=== PATIENT | female | born 1985 | race Caucasian/White ===

== ENCOUNTER 2019-11-19 11:26 | Outpatient (CLI) | payer OTHER, SELFPAY ==
[2019-11-19 11:57] LABS: Hematocrit 32.7 % (37.0-47.0); Hemoglobin 11.2 g/dL (12.0-15.0); Mean Corpuscular HGB Conc 34.3 g/dl (32-36); Mean Corpuscular Hemoglobin 31.6 pg (26-34); Mean Corpuscular Volume 92.4 fl (80-100); Mean Platelet Volume 11.1 fl (7.4-10.4); Platelet Count Result 234 k/mm3 (150-375); Red Blood Count 3.54 M/mm3 (4.2-5.4); Red Cell Distribution Width 13.3 % (11.5-14.5); White Blood Count 10.8 K/mm3 (4.5-10.0)
[2019-11-20 11:41] LABS: Rapid Plasma Reagin Non-Reactive (NonReactive)
== END 2019-11-19 11:27 | disposition home or self-care (01) ==
LOC: ANHLAB 11:28
PROVIDERS: Visit Provider Obstetrics & Gynecology
DX: Z01.818 Encounter for other preprocedural examination (principal)
CPT/HCPCS: 36415; 85027; 86592; 86850; 86900; 86901

== ENCOUNTER 2019-11-20 05:30 | Inpatient (IN) | payer OTHER, SELFPAY ==
[2019-11-20] VITALS (74 sets, daily range): BP systolic 83–143; BP diastolic 43–112; PULSE 43–82; RESP 16–20; TEMP 36.2–37; O2SAT 95–100; BMI 35.1
[2019-11-20] MEDS: LACTATED RINGERS 1,000 ML 125 ML IV CONT ×2 (06:01→07:02)
--- NOTE | 2019-11-20 06:16 | P.PNAN_ITS ---
Anes - Initial Pre Proc Eval Procedure: Operation Date: 11/20/19 07:30 Proposed Procedures p Repeat Section with Bilateral Tubal Ligation - Shabana Shrestha MD Date/Time: 11/20/19 06:16 Surgeon: Shabana Shrestha MD Pre Op Diagnosis: Section Patient Data Age: 34 Gender: F Height: Weight: Last Vital Signs Pulse 78 11/20/19 06:16 BP 125/81 11/20/19 06:16 Allergies Allergy/AdvReac Type Severity Reaction Status Date / Time morphine Allergy Mild hives, Verified 11/20/19 06:01 itching, redness SOAPCLEAN AdvReac Unknown DYE IN SOAP Uncoded 11/20/19 06:01 Home Medications Medication Instructions Recorded Confirmed Type PNV cmb#95-ferrous fumarate-FA 1 tablet PO DAILY 10/30/19 10/30/19 History [] Patient hx anesthesia problems: none Family hx anesthesia problems: none PMFSH Past Medical History Medical History Obesity Smoker Surgical History Surgical History (Updated 11/20/19 @ 06:17 by Zurdo Culver MD) History of section Family History Family History Grandparent Hypertension Diabetes mellitus Social History Social History Substance use: current Gender identity (if verbalized by the patient): Female Spiritual care concerns: No Anes - Eval Final PreProcedure Day of Procedure 11/20/19 06:16 Patient weight: obese Heart: regular rate and rhythm Lungs: clear to auscultation Airway: Mallampati scale class II Neurological: alert and oriented Last oral intake: >/= 8 hours ASA classification: III Emergent: no Anesthetic plan: proceed Anesthesia type and monitoring: regional (morphine allergy - no intrathecal morphine will be given) spinal and standard monitoring Informed Consent: The patient's anesthetic plan and its attendant risks and b enefits were discussed with the patient/family/POA. Questions were solicited and answers provided to the satisfaction of the patient/family/POA.
--- NOTE | 2019-11-20 06:25 | LDADM ---
This patient, Doreen Sun, was admitted to Labor/Delivery/Recovery 120 on 11/20/19 at 05:30. Plans for scheduled section, pain management and were discussed with patient. Patient/family oriented to hospital policies and general routines including ID bracelet, bed and alarms, visiting hours, pain management, procedures, bathroom and other care routines, personal items, smoking policy, room service/diet and guest tray routines, infant security routines, and visiting hours. Patient/Family are encouraged to report perceived risks to care and to ask questions if they do not understand what they are told or what they should do. See OBIX for further documentation.
--- NOTE | 2019-11-20 07:19 | PM.IMHP ---
H&P: HPI History of Present Illness Date/Time: 11/20/19 07:19This patient is a 34-year-old multiparous female with a previous delivery in on wanted fertility. We have agreed to perform repeat delivery and bilateral tubal ligation. She understands the procedure. She denies any loss of fluid, vaginal bleeding, contractions. She denies any headache, blurry vision, epigastric pain. She does have chest pain or shortness of breath. She denies any nausea, vomiting, fever, chills. Chief complaint: Section Narrative: Doreen Sun is a 34 year old female Review of Systems Constitutional: Constitutional: Reports no additional constitutional complaints, Denies fatigue, Denies headache(s), Denies lethargy and Denies weakness Eyes: Eyes: Reports no additional eye complaints, Denies blurry vision and Denies photophobia ENT: Reports as per HPI, Denies headache(s) and Denies neck pain Cardiovascular: Cardiovascular: Denies chest pain, Denies diaphoresis, Denies leg edema, Denies palpitations and Denies dyspnea Respiratory: Respiratory: Denies hemoptysis, Denies dyspnea and Denies wheezing Gastrointestinal: Gastrointestinal: Denies abdominal pain, Denies melena, Denies bloating, Denies hematochezia, Denies nausea and Denies vomiting Genitourinary: Genitourinary: Reports no additional female genitourinary complaints Musculoskeletal: Musculoskeletal: Denies joint swelling, Denies neck pain, Denies numbness and Denies stiffness Neurologic: Denies Abnormal speech present, Denies confusion, Denies headache(s), Denies numbness and Denies weakness Psychiatric: Psychiatric: Denies anxiety, Denies confusion, Denies depression, Denies homicidal ideation and Denies suicidal ideation Endocrine: Endocrine: Denies fatigue and Denies palpitations Allergic/Immunologic: Allergic/Immunologic: Denies wheezing PMFSH Past Medical History Medical History Obesity Smoker Surgical History Surgical History (Updated 11/20/19 @ 07:21 by Shabana Shrestha MD) History of section Family History Family History Grandparent Hypertension Diabetes mellitus Social History Social History Smoking packs per day: 1 Smoking cigarettes per day: 20.0 Years smoked: 15 Smoking pack-years: 15.00 Smoking status: Heavy tobacco smoker Tobacco type: cigarettes Substance use: current Gender identity (if verbalized by the patient): Female Spiritual care concerns: No Meds Home Medications and Allergies Home Medications Medication Instructions Recorded Confirmed Type PNV cmb#95-ferrous fumarate-FA 1 tablet PO DAILY 10/30/19 10/30/19 History [] Allergies Allergy/AdvReac Type Severity Reaction Status Date / Time morphine Allergy Mild hives, Verified 11/20/19 06:01 itching, redness SOAPCLEAN AdvReac Unknown DYE IN SOAP Uncoded 11/20/19 06:01 Vital Signs Vital Signs - 24 hr 11/20/19 05:53 11/20/19 06:01 11/20/19 06:16 Temperature Pulse Rate 82 76 78 Respiratory Rate Blood Pressure 112/85 114/74 125/81 11/20/19 06:35 Temperature 98.6 F Pulse Rate Respiratory Rate 18 Blood Pressure Exam Const: General: healthy appearing, comfortable and no acute distress; No confusion Orientation/consciousness: No confusion Eyes: Direct Ophthalmoscopy: No photophobia Resp: Auscultation: clear to auscultation bilaterally, no rales, no rhonchi and no wheezes Cardio: Rate: regular rate Heart sounds: no click, no murmurs and no rubs GI: Inspection: non-distended GI Palp: No abdominal tenderness Auscultation: normal bowel sounds Neuro: General: No confusion Speech: No Abnormal speech present Extrem: General: normal to inspection, no pedal edema and no calf tenderness Assessment and Plan Assessment and plan (1) Term : Code(s): Z34.90
[2019-11-20] MEDS: LACTATED RINGERS 250 ML 999 ML IVPB (08:30)
[2019-11-20] MEDS: KETOROLAC 30 MG/ML VIAL (*BKC) IV PUSH ×2 (08:31→15:47)
--- NOTE | 2019-11-20 08:37 | P.OP_ITS ---
Procedure Note - Detailed Date of procedure: 11/20/19 Pre-op diagnosis: Section Unwanted fertility Post-op diagnosis: same Procedure performed: Repeat low-transverse delivery, tubal ligation Description of procedure: The patient was taken the operating room. She was prepped and draped in the dorsal supine position with leftward tilt after induction of spinal anesthetic. When anesthesia was found to be adequate a low- transverse skin incision was made and carried down to the level the fascia with the knife. The fascial incision was made at the midline with a scalpel. The fascial incision was extended laterally with Hamm scissors. The fascia was tented upward superior and inferior with Izabella clamps. The rectus muscles were dissected off bluntly. The rectus muscles at the midline. The preperitoneal fat was dissected bluntly at the superior aspect of the separate the rectus muscles. The peritoneal cavity was entered bluntly in the same area. The peritoneal incision was extended superior and inferior with good position of bladder. Bladder blade was inserted. A low-transverse incision was made on the uterus with the scalpel. It was carried down the level of the amniotic cavity with a knife. The amniotic cavity bluntly. The uterine incision was made laterally with blunt traction. The was delivered. The cord was clamped and cut. The infant was handed off to waiting pediatric staff. Cord bloods were obtained. The placenta was removed manually. The uterus was exteriorized. Uterus cleared of all clots and debris. Uterus closed in 0 Micky ryl in a running locked fashion. An imbricating layer of 0 Vicryl was also placed on the to bolster the closure. The left Fallopian tube was grasped in the ampullary region with a [place]. It was raised away from the accompanying vein. A window was created in the broad ligament in this area of the tube. 0 Vicryl was used to ligate the proximal distal ends of the skeletonize region of the tube. The segment of the tube was resected with scissors. The cut surfaces were cauterized. On the contralateral side a fimbriectomy was performed. It was bleeding distally. A clamp was place over the tube and vessels at the distal 1/3 of the tube. It was transected and suture ligated removing a portion of the tube and the fimbria. The uterus was returned to the abdomen. The gutters were cleared of all clots and debris. The fascia was closed 0 Vicryl in a running fashion. Subcutaneous tissue was irrigated and bleeding areas were cauterized. The skin was closed with subcuticular absorbable sandra. The incision was covered with derma gann. The patient tolerated the procedure well. She was taken recovery room stable condition. Sponge, lap, needle counts were correct x2. Anesthesia: spinal Surgeon: Shabana Shrestha MD Estimated blood loss (mL): 350 Drains: No Packing: No Pathology: none sent Complications: No immediate complications Condition: stable Disposition: floor Findings: Normal maternal anatomy. Average size with normal Apgars.
[2019-11-20] MEDS: OXYTOCIN 30 UNITS/NS 500 ML 30 UNITS/500 ML BAG 125 UNITS IV CONT (09:10)
--- NOTE | 2019-11-20 10:54 | SUR.PHASEI ---
Dr. Shrestha notified regarding pt's decreased urine output of 50 mL in recovery and pt's sinus bradycardia. Received orders from Dr. Shrestha to continue with current POC and to start Hydromorphone [employer] pump upon transfer to .
--- NOTE | 2019-11-20 11:05 | PC.NURSE ---
PT arrived on unit via stretcher accompanied by significant other and and taken to room 282. PT transferred to bed via maxi air without difficulty. PT oriented to room 282 and surrounding area. PT introductions made and plan of care discussed per post op c section, pain management, breast feeding, daily care activities. Welcome packet discussed and pt verbalized understanding of such care.
[2019-11-20] MEDS: DEXTROSE 5%/0.45% SOD CHL 1,000 ML 125 ML IV CONT (13:30)
[2019-11-20] MEDS: DOCUSATE SODIUM 100 MG CAPSULE PO (15:46)
[2019-11-20] MEDS: NICOTINE (*PBKC) 21 MG PATCH 1 PATCH TRANSDERM (15:46)
[2019-11-20] MEDS: SIMETHICONE 80 MG TAB.CHEW PO (15:46)
[2019-11-20] MEDS: FUROSEMIDE INJ 40 MG/4 ML VIAL 20 MG IV PUSH (18:24)
[2019-11-20] MEDS: LACTATED RINGERS 500 ML 999 ML IV CONT (18:30)
[2019-11-20 20:11] LABS: Alanine Aminotransferase 12 U/L (4-35); Albumin Level 2.9 g/dL (3.5-5.1); Alkaline Phosphatase 158 U/L (38-126); Anion Gap 6 mmol/L (8-16); Aspartate Amino Transferase 23 U/L (14-36); Bilirubin,Total 0.4 mg/dL (0.2-1.3); Blood Urea Nitrogen 7 mg/dL (7-17); Carbon Dioxide 21 mmol/L (22-30); Chloride 106 mmol/L (98-107); Estimated CRCL calculation 122 ml/min; Estimated Glomerular Filt Rate > 60; Glucose 118 mg/dL (65-105); Potassium 3.8 mmol/L (3.4-5.0); Sodium 133 mmol/L (137-145)
[2019-11-20] MEDS: IBUPROFEN 600 MG TABLET PO (21:44)
[2019-11-21 03:25] VITALS: BP 109/64; PULSE 52; RESP 16; TEMP 36.7
[2019-11-21] MEDS: IBUPROFEN 600 MG TABLET PO ×3 (03:39→19:01)
[2019-11-21 05:14] LABS: Basophils Percent Auto 0.1 % (0.2-1.2); Eosinophils Percent Auto 0.4 % (0-4.4); Hematocrit 27.5 % (37.0-47.0); Hemoglobin 9.1 g/dL (12.0-15.0); Immature Granulocyte Absolute 0.04 K/mm3 (0.00-0.031); Immature Granulocyte Percent A 0.4 % (0-0.5); Lymphocytes Absolute Auto 1.04 K/mm3 (0.9-3.2); Lymphocytes Percent Auto 11.3 % (18.3-44.2); Mean Corpuscular HGB Conc 33.1 g/dl (32-36); Mean Corpuscular Hemoglobin 30.6 pg (26-34); Mean Corpuscular Volume 92.6 fl (80-100); Mean Platelet Volume 11.9 fl (7.4-10.4); Monocytes Absolute Auto 0.5 K/mm3 (0.1-0.6); Monocytes Percent Auto 5.7 % (2.6-8.5); Neutrophils Absolute Auto 7.6 K/mm3 (1.3-6.7); Neutrophils Percent Auto 82.1 % (45.5-73.1); Platelet Count Result 194 k/mm3 (150-375); Red Blood Count 2.97 M/mm3 (4.2-5.4); Red Cell Distribution Width 13.2 % (11.5-14.5); White Blood Count 9.2 K/mm3 (4.5-10.0)
[2019-11-21 07:30] VITALS: BP 95/53; PULSE 72; RESP 18; TEMP 36.7; O2SAT 97
[2019-11-21] MEDS: DOCUSATE SODIUM 100 MG CAPSULE PO ×2 (07:33→15:48)
[2019-11-21] MEDS: POLYSACCHARIDE IRON COMPLEX 150 MG CAPSULE PO ×2 (07:33→15:46)
--- NOTE | 2019-11-21 08:36 | WPDANLDNPN2 ---
Anes-Prog Note L&D-Neuraxial Date/Time: 11/21/19 08:36 Neuraxial medications: intrathecal PF morphine Opiod-related complaints: none Patient feedback: Patient satisfied with post-operative pain management.
--- NOTE | 2019-11-21 08:36 | WPDANLDPN2 ---
Anes-Prog Note L&D Date/Time: 11/21/19 08:36 Comfortable throughout: section Neuraxial method: spinal Epidural/Spinal procedure site: clean & non-tender Neuro status: Neuro function grossly intact. Cardiovascular status: normal Respiratory status: normal Airway patency: baseline Mental status: baseline Post-Op hydration status: normal Vital Signs: Last Vital Signs Temp 36.7 C 11/21/19 03:25 Pulse 52 L 11/21/19 03:25 Resp 16 11/21/19 03:25 BP 109/64 11/21/19 03:25 Pulse Ox 100 11/20/19 19:00 I/O: Intake & Output 11/20/19 11/21/19 11/21/19 23:59 07:59 15:59 Intake Total 1650 800 Output Total 1550 400 Balance 100 400 Patient feedback: Patient satisfied with anesthetic care.
--- NOTE | 2019-11-21 11:13 | P.PNOB_ITS ---
OB - PN: Subj Subjective Date/time seen: 11/21/19 11:13 OB - PN: Obj Data Labs CBC & Chem 7: 11/21/19 03:27 11/20/19 19:47 Labs: Laboratory Results - last 24 hr 11/20/19 11/21/19 19:47 03:27 WBC 9.2 RBC 2.97 L Hgb 9.1 L Hct 27.5 L MCV 92.6 MCH 30.6 MCHC 33.1 RDW 13.2 Plt Count 194 MPV 11.9 H Immature Gran % (Auto) 0.4 Neut % (Auto) 82.1 H Lymph % (Auto) 11.3 L Amelia % (Auto) 5.7 Eos % (Auto) 0.4 Baso % (Auto) 0.1 L Lymph # (Auto) 1.04 Amelia # (Auto) 0.5 Eos # (Auto) 0.0 Baso # (Auto) 0.0 Abs Immat Gran (auto) 0.04 H Absolute Neuts (auto) 7.6 H Absolute Nucleated RBC 0.0 Nucleated RBC % 0.0 Sodium 133 L Potassium 3.8 Chloride 106 Carbon Dioxide 21 L Anion Gap 6 L BUN 7 Creatinine 0.60 L Estim Creat Clear Calc 122 Estimated GFR > 60 Glucose 118 H Calcium 8.0 L Total Bilirubin 0.4 AST 23 ALT 12 Alkaline Phosphatase 158 H Total Protein 6.0 L Albumin 2.9 L OB - PN A/P Plan day: 1 Plan: routine care Time Spent With Patient Time: Total time spent is greater than 50% in coordination of care (as documented) at patient's floor/unit and/or counseling patient: Time with patient: less than 15 minutes Review of Systems Review of Systems: All systems reviewed & are unremarkable except as noted in HPI and below Exam Narrative: Exam Narrative: Fundus firm and vaginal flow controlled. Const: General: cooperative, healthy appearing and comfortable Orienta tion/consciousness: oriented to person, oriented to place, oriented to time and patient oriented x3 Limitations: no limitations HENMT: Head: normal to inspection Ears: hearing grossly normal bilaterally General nose exam: Normal external nose present Face and sinus: normal facial exam Mouth: Yes Normal oral and palatal mucosa present Teeth and gingiva: dentition normal Throat: posterior oropharynx normal Eyes: General: appearance normal, both eyes and all related structures Neck: Neck: normal visual inspection Thyroid: thyroid normal Chest: Chest palpation & inspection: normal inspection of the chest Resp: Effort & Inspection: normal respiratory effort Auscultation: clear to auscultation bilaterally Cardio: Rate: regular rate Rhythm: regular rhythm GI: Inspection: normal to inspection Auscultation: normal bowel sounds : General: Yes bimanual renal exam normal bilaterally Skin: General skin exam: normal color and no rashes or lesions noted Neuro: General: oriented to person, oriented to place, oriented to time and patient oriented x3 Extrem: General: normal to inspection Psych: Appearance: grossly normal Mental Status: mental status grossly normal Attitude: cooperative Judgement: Good judgement present (Psych)
[2019-11-21] MEDS: TETANUS,DIPHTHERIA,AC PERTUSSIS ADULT (0.5 ML) BOOSTRIX IM (11:43)
[2019-11-21 18:48] VITALS: BP 115/71; PULSE 69; RESP 16; TEMP 36.8; O2SAT 97
[2019-11-21] MEDS: NICOTINE (*PBKC) 14 MG PATCH 1 PATCH TRANSDERM (19:36)
--- NOTE | 2019-11-21 20:36 | PC.NURSE ---
11/21/2019 at 2000 Patient viewed the discharge video Mother & Baby Care, The First Two Weeks . Patient was given the opportunity and encouraged to ask questions. Patient verbalized understanding of information shared and has been given the mother/baby guide for home reference.
[2019-11-21] MEDS: SIMETHICONE 80 MG TAB.CHEW PO (23:30)
[2019-11-22] MEDS: IBUPROFEN 600 MG TABLET PO ×2 (04:03→11:54)
[2019-11-22] MEDS: SIMETHICONE 80 MG TAB.CHEW PO ×2 (04:03→11:56)
[2019-11-22 08:00] VITALS: BP 130/89; PULSE 91; RESP 18; TEMP 36.7; O2SAT 97
--- NOTE | 2019-11-22 10:45 | PM.OBPNVD ---
OB - PN: Subj Subjective Date/time seen: 11/22/19 10:45 Patient comments: no complaints and pain well controlled baby status: doing well OB - PN: Obj Data Labs CBC & Chem 7: 11/21/19 03:27 11/20/19 19:47 OB - PN A/P Plan day: 2 Plan: routine care and discharge home Comments: RTC 1 week. Time Spent With Patient Time: Total time spent is greater than 50% in coordination of care (as documented) at patient's floor/unit and/or counseling patient: Review of Systems Review of Systems: All systems reviewed & are unremarkable except as noted in HPI and below Exam Narrative: Exam Narrative: Fundus firm. Flow controlled. Incision looks great and is open to air. No redness, warmth, or edema of lower ext. Neg homans sign Const: General: comfortable Chest: Breast/axilla inspection: normal inspection of the breasts Resp: Effort & Inspection: normal respiratory effort Auscultation: clear to auscultation bilaterally Cardio: Rate: regular rate GI: Auscultation: normal bowel sounds Psych: Appearance: grossly normal Affect: normal affect Attitude: cooperative Judgement: Good judgement present (Psych)
[2019-11-22] MEDS: DOCUSATE SODIUM 100 MG CAPSULE PO (11:53)
[2019-11-22] MEDS: POLYSACCHARIDE IRON COMPLEX 150 MG CAPSULE PO (11:53)
[2019-11-22] MEDS: MULTIVIT/MIN/PREN/FOL AC/IRON TABLET 1 TAB PO (11:53)
--- NOTE | 2019-11-22 15:58 | PC.NURSE ---
1338 Mother slept all monring until about 1130; awakened and asked for pain med. Nurse had been in room 2 times with pain meds, and mother was sound asleep each time. Pain meds given; then discharge papers reviewed with her for herself and her baby, and signed. Mother discharged home at this time in apparent stable condition.
[2019-11-24 10:51] VITALS: BP 122/83; PULSE 71; RESP 20; TEMP 36.9; O2SAT 98
--- NOTE | 2019-12-20 20:26 | PM.OBDSVD ---
DS: Admitting Diagnosis Admitting Diagnosis Admitting Diagnosis: Section DS: Discharge Diagnosis Discharge Diagnosis (1) Previous delivery, delivered: Code(s): O34.219 - Maternal care for unspecified type scar from previous delivery Status: Acute OB - DS: Summary OB Procedures : None OB Procedures Intrapartum: and Tubal ligation OB Procedures: : None Peripartum Data Infant Delivery Method: Section Procedures: Procedures Operation Date: 11/20/19 07:30 Actual Procedures Side Surgeon p Section Shabana Shrestha MD Time Spent with Patient Time attestation: Total time spent providing and/or coordinating discharge services: DS: Data Data Completed and Pending Completed studies during hospitalization: Pending at discharge 11/20/19 09:16 Surgical [PTH] Routine Discharge Plan Discharge Attending physician on discharge: Shabana Shrestha Consulting providers: Zurdo Culver ; Erma Stevens Discharging Clinician: Erma Stevens Patient Disposition: Home, Self-Care Activity: pelvic rest Diet: as tolerated Wound Care Instructions: follow printed instructions Discharge Instructions: Education: Mom and Baby Guide Given to: Mother Follow-Up: Call your delivering provider's office for an appointment to be seen in: as directed by physician Mom and baby should come to the [facility] for the follow-up appointment. Appointment Date/Time: Sunday November 24, 2019 at 11:00 am What to expect at your follow-up visit: Blood Pressure Check Physical Assessment Call [phone] if you are unable to keep your appointment time. BREAST CARE: * Wear a snug supportive bra. * For engorgement discomfort: Breast Feeding: * Apply warm moist washcloths * Express milk as needed to relieve engorgement * Wear loose clothing Bottle Feeding: * May apply ice packs * For sore nipples: * Identify correct latch-on * Apply warm moist washcloths before and after nursing * Air dry nipples after nursing * May apply Lansinoh cream to nipples ABDOMINAL INCISION: (if applicable) * Allow incision to air dry * Do NOT use lotions for powders on your incision * When showering, allow soap and water to run over the incision, but do not wash incision EPISIOTOMY/PERINEAL CARE: * Until bleeding stops, use your antonino bottle after urinating * Change your pad frequently throughout the day * No tub baths until seen by your physician - You may shower ACTIVITY: * Rest as much as possible. * Do not exercise or lift anything heavier than your baby (such as laundry or other children.) * Avoid stairs or driving as much as possible. * Do not put anything into the vagina. No douching, tampons, or sexual activity until seen by physician. NOTIFY PHYSICIAN IF YOU HAVE ANY QUESTIONS OR IF ANY OF THE FOLLOWING SYMPTOMS OCCUR: * If your incision becomes red, swollen, or more painful than what you have experienced in the hospital. * If your vaginal bleeding becomes foul smelling. * If your vaginal bleeding becomes more heavy than a period or if your bleeding changes from pink to bright red. However, you may pass an occasional walnut-sized clot once or twice for the first week . * If you experience a sharp, shooting pain in you calves. * If you discover a hard, reddened area on your breast or if you experience flu-like symptoms. *Temperature of 100.4 or higher DIET: * Eat regular, well-balanced meals. * Drink plenty of fluids daily. If , drink to thirst. Morphine allergy. However, pt has tolerated norco well with no side effects. Pt will monitor for s/s of reaction. Patient Instructions: How to Stop Smoking (DC) Stand Alone Forms: General Discharge Information Follow-up/Referrals: Shabana Shrestha MD
== END 2019-11-22 13:38 | disposition home or self-care (01) | DRG 540 ==
LOC: ANHLDR 05:34 → ANHOB2 11:08
PROVIDERS: Admitting Provider Obstetrics & Gynecology; Visit Provider Obstetrics & Gynecology
PROC: 10D00Z1 Extraction of Products of Conception, Low, Open Approach (ICD-10-PCS; CPT 59514; principal; 2019-11-20 07:30)
DX: O34.211 Maternal care for low transverse scar from previous cesarean delivery (principal); Z30.2 Encounter for sterilization; O99.214 Obesity complicating childbirth; E66.9 Obesity, unspecified; O99.334 Smoking (tobacco) complicating childbirth; F17.210 Nicotine dependence, cigarettes, uncomplicated; Z3A.39 39 weeks gestation of pregnancy; Z37.0 Single live birth
CPT/HCPCS: 36415; 80053; 85025; 88302; 90715; A9270; J0131; J1170; J1885; J1940; J2370; J2405; J2590; J3010; J7120

== ENCOUNTER 2024-06-29 14:30 | Emergency (ER) | payer MEDICAID, SELFPAY ==
--- NOTE | ~2024-06-29 | XR_ITS ---
EXAMINATION: XR chest 2V Exam Date/Time: 06/29/2024 15:23 CDT HISTORY: cough Comparison: None. RESULT: Lines, tubes, and devices: None. Lungs and pleura: Clear. Cardiomediastinal silhouette: Unremarkable. Other: No acute osseous or upper abdominal finding. IMPRESSION: No acute cardiopulmonary process. Reviewed, dictated and finalized at location K.
[2024-06-29 14:38] VITALS: BP 152/94; PULSE 91; RESP 18; TEMP 36.7; O2SAT 100
--- NOTE | 2024-06-29 14:39 | ED.GENADULT ---
HPI - General Adult General Chief complaint: Unspecified <Meena Ashraf APRN - Last Filed: 06/29/24 14:43> Stated complaint: Sore throat, hoarse x 3-4 weeks <Meena Ashraf APRN - Last Filed: 06/29/24 14:43> Time Seen by Provider: 06/29/24 14:35 <Meena Ashraf APRN - Last Filed: 06/29/24 14:43> Focused HPI: Patient is a 38-year-old female who presents to the ER with a 3-4 week history of cough, congestion, scratchy throat. She reports she is on she was experiencing seasonal allergies, and she discovered mold. Patient reports she has continued to experience symptoms even though she has cleaned up the area. She denies any medical history relevant to this ER visit. Patient denies any chest pain, recent fevers, back pain. GENERAL: Well-appearing, well-nourished, and in no acute distress. HEAD: Normocephalic, atraumatic. CHEST: + wheezing & rales to auscultation. ?No respiratory distress. HEART: Regular rate and rhythm.? NEURO: ?Alert and oriented x3. Patient screened in triage and initial orders placed.? ?Additional care and disposition to be based upon?diagnostic testing and treatment. <Meena Ashraf APRN - Last Filed: 06/29/24 14:43> Source: patient <Gm Gonzalez PA-C - Last Filed: 06/30/24 01:38> Mode of arrival: ambulatory <Gm Gonzalez PA-C - Last Filed: 06/30/24 01:38> Limitations: no limitations <Gm Gonzalez PA-C - Last Filed: 06/30/24 01:38> History of Present Illness HPI narrative: Agree with MSE note above <Gm Gonzalez PA-C - Last Filed: 06/30/24 01:38> Related Data Home medications: Home Medications ?Medication ?Instructions ?Recorded ?Confirmed ?Last Taken ?Type vit no.95-ferrous 1 tablet PO DAILY 10/30/19 10/30/19 Unknown History fumarate 28 mg-folic acid 800 mcg tablet () <Meena Ashraf APRN - Last Filed: 06/29/24 14:43> Allergies/adverse reactions: Allergies Allergy/AdvReac Type Severity Reaction Status Date / Time morphine Allergy Mild hives, Verified 06/29/24 14:32 itching, redness SOAPCLEAN AdvReac Unknown DYE IN SOAP Uncoded 06/29/24 14:32 <Meena Ashraf APRN - Last Filed: 06/29/24 14:43> Review of Systems Review of Systems: All systems as dictated in HPI <Gm Gonzalez PA-C - Last Filed: 06/30/24 01:38> PMFSH Past Medical History Medical History: Medical History Obesity Smoker <Meena Ashraf APRN - Last Filed: 06/29/24 14:43> Surgical History Surgical History: Surgical History (Updated 11/20/19 @ 07:21 by Mark Shrestha MD) History of section <Meena Ashraf APRN - Last Filed: 06/29/24 14:43> Family History Family History: Family History Grandparent Hypertension Diabetes mellitus <Meena Ashraf APRN - Last Filed: 06/29/24 14:43> Social History Social History: Social History Smoking packs per day: 1 Smoking cigarettes per day: 20.0 Years smoked: 15 Smoking pack-years: 15.00 Smoking status: Heavy tobacco smoker Tobacco type: cigarettes Substance use: current Gender identity (if verbalized by the patient): Female Spiritual care concerns: No <Meena Ashraf APRN - Last Filed: 06/29/24 14:43> Exam Narrative: GENERAL: Well-appearing, well-nourished, and in no acute distress. HEAD: Normocephalic, atraumatic. EYES: PERRLA and EOMI. ENT: Nares clear, no rhinorrhea or epistaxis. Mucous membranes moist. Oropharynx without tonsillar hypertrophy exudate or other lesions. NECK: Supple. No adenopathy or masses. CHEST: No respiratory distress. Clear to auscultation. No wheezes rales or rhonchi HEART: Regular rate and rhythm. No murmur heard. Normal peripheral pulses. ABDOMEN: Soft, nontender, nondistended, normal active bowel sounds. MSK: Normal range of motion. No edema. SKIN: Warm, dry, no rash. NEURO: Alert and oriented x4. No focal deficits. PSYCH: Normal mood and affect. <Gm Gonzalez PA-C - Last Filed: 06/30/24 01:38> Course Vital Signs Vital signs: Vital Signs Temperature 98.0 F 06/29/24 14:38 Pulse Rate 91 06/29/24 14:38 Respiratory Rate 18 06/29/24 14:38 Blood Pressure 152/94 H 06/29/24 14:38 Pulse Oximetry 100 06/29/24 14:38 Temperature 98.0 F 06/29/24 14:38 Pulse Rate 89 06/29/24 18:21 Respiratory Rate 16 06/29/24 18:21 Blood Pressure 145/90 H 06/29/24 18:21 Pulse Oximetry 100 06/29/24 18:21 <Meena Ashraf APRN - Last Filed: 06/29/24 14:43> Vital Signs Temperature 98.0 F 06/29/24 14:38 Pulse Rate 91 06/29/24 14:38 Respiratory Rate 18 06/29/24 14:38 Blood Pressure 152/94 H 06/29/24 14:38 Pulse Oximetry 100 06/29/24 14:38 Temperature 98.0 F 06/29/24 14:38 Pulse Rate 89 06/29/24 18:21 Respiratory Rate 16 06/29/24 18:21 Blood Pressure 145/90 H 06/29/24 18:21 Pulse Oximetry 100 06/29/24 18:21 <BEBETO Higgins Last Filed: 06/30/24 01:38> Medical Decision Making MDM Narrative Medical decision making narrative: This is a 38-year-old female who presents to the ED for chief complaint of was hoarse voice past couple of weeks. Lab work shows normal white count on CBC. CBC shows stable anemia with hemoglobin of 11.7. CMP does show elevation in AST, ALT and alk-phos to a minor degree. Chest x-ray shows no acute findings. Presentation most likely consistent with post viral laryngitis. Patient will be discharged in stable condition. Supportive measures discussed and return precautions given. Patient is understanding and agreeable with plan for discharge with PCP follow-up. <Gm Gonzalez PA-C - Last Filed: 06/30/24 01:38> Vital Signs Vital Signs: Vital Signs Temperature 98.0 F 06/29/24 14:38 Pulse Rate 91 06/29/24 14:38 Respiratory Rate 18 06/29/24 14:38 Blood Pressure 152/94 H 06/29/24 14:38 Pulse Oximetry 100 06/29/24 14:38 Temperature 98.0 F 06/29/24 14:38 Pulse Rate 89 06/29/24 18:21 Respiratory Rate 16 06/29/24 18:21 Blood Pressure 145/90 H 06/29/24 18:21 Pulse Oximetry 100 06/29/24 18:21 <Meena Ashraf, MINERAL RESOURCES INSPECTOR - Last Filed: 06/29/24 14:43> Vital Signs Temperature 98.0 F 06/29/24 14:38 Pulse Rate 91 06/29/24 14:38 Respiratory Rate 18 06/29/24 14:38 Blood Pressure 152/94 H 06/29/24 14:38 Pulse Oximetry 100 06/29/24 14:38 Temperature 98.0 F 06/29/24 14:38 Pulse Rate 89 06/29/24 18:21 Respiratory Rate 16 06/29/24 18:21 Blood Pressure 145/90 H 06/29/24 18:21 Pulse Oximetry 100 06/29/24 18:21 <Gm Gonzalez PA-C - Last Filed: 06/30/24 01:38> Lab Data Result diagrams: 06/29/24 15:01 06/29/24 15:01 <Meena Ashraf, MINERAL RESOURCES INSPECTOR - Last Filed: 06/29/24 14:43> Labs: Lab Results 06/29/24 Range/Units 15:01 WBC 6.1 (4.5-10.0) K/mm3 RBC 4.12 L (4.2-5.4) M/mm3 Hgb 11.7 L (12.0-15.0) g/dL Hct 37.5 (37.0-47.0) % MCV 91.0 (80-100) fl MCH 28.4 (26-34) pg MCHC 31.2 L (32-36) g/dl RDW 16.4 H (11.5-14.5) % Plt Count 244 (150-375) k/mm3 MPV 10.3 (7.4-10.4) fl Immature Gran % (Auto) 0.3 (0-0.5) % Neut % (Auto) 62.1 (45.5-73.1) % Lymph % (Auto) 28.8 (18.3-44.2) % [place] % (Auto) 6.2 (2.6-8.5) % Eos % (Auto) 2.1 (0-4.4) % Baso % (Auto) 0.5 (0.2-1.2) % Lymph # (Auto) 1.76 (0.9-3.2) K/mm3 [place] # (Auto) 0.4 (0.1-0.6) K/mm3 Eos # (Auto) 0.1 (0-0.3) K/mm3 Baso # (Auto) 0.0 (0.0-0.1) K/mm3 Abs Immat Gran (auto) 0.02 (0.00-0.031) K/mm3 Absolute Neuts (auto) 3.8 (1.3-6.7) K/mm3 Absolute Nucleated RBC 0.000 (0.0-0.012) K/mm3 Nucleated RBC % 0.0 (0.0-0.2) % Sodium 139 (137-145) mmol/L Potassium 4.0 (3.4-5.0) mmol/L Chloride 105 (98-107) mmol/L Carbon Dioxide 23 (22-30) mmol/L Anion Gap 11 (4-12) mmol/L BUN 4 L (7-17) mg/dL Creatinine 0.72 (0.7-1.0) mg/dL Estim Creat Clear Calc 97 ml/min Estimated GFR > 60 (59 - ) Glucose 94 (65-110) mg/dL Calcium 8.7 (8.4-10.2) mg/dL Total Bilirubin 0.3 (0.2-1.3) mg/dL AST 45 H (14-36) U/L ALT 47 H (6-35) U/L Alkaline Phosphatase 166 H (38-126) U/L Total Protein 7.0 (6.3-8.2) g/dL Albumin 4.3 (3.5-5.1) g/dL <Meena Ashraf, MINERAL RESOURCES INSPECTOR - Last Filed: 06/29/24 14:43> Lab Results 06/29/24 Range/Units 15:01 WBC 6.1 (4.5-10.0) K/mm3 RBC 4.12 L (4.2-5.4) M/mm3 Hgb 11.7 L (12.0-15.0) g/dL Hct 37.5 (37.0-47.0) % MCV 91.0 (80-100) fl MCH 28.4 (26-34) pg MCHC 31.2 L (32-36) g/dl RDW 16.4 H (11.5-14.5) % Plt Count 244 (150-375) k/mm3 MPV 10.3 (7.4-10.4) fl Immature Gran % (Auto) 0.3 (0-0.5) % Neut % (Auto) 62.1 (45.5-73.1) % Lymph % (Auto) 28.8 (18.3-44.2) % [place] % (Auto) 6.2 (2.6-8.5) % Eos % (Auto) 2.1 (0-4.4) % Baso % (Auto) 0.5 (0.2-1.2) % Lymph # (Auto) 1.76 (0.9-3.2) K/mm3 [place] # (Auto) 0.4 (0.1-0.6) K/mm3 Eos # (Auto) 0.1 (0-0.3) K/mm3 Baso # (Auto) 0.0 (0.0-0.1) K/mm3 Abs Immat Gran (auto) 0.02 (0.00-0.031) K/mm3 Absolute Neuts (auto) 3.8 (1.3-6.7) K/mm3 Absolute Nucleated RBC 0.000 (0.0-0.012) K/mm3 Nucleated RBC % 0.0 (0.0-0.2) % Sodium 139 (137-145) mmol/L Potassium 4.0 (3.4-5.0) mmol/L Chloride 105 (98-107) mmol/L Carbon Dioxide 23 (22-30) mmol/L Anion Gap 11 (4-12) mmol/L BUN 4 L (7-17) mg/dL Creatinine 0.72 (0.7-1.0) mg/dL Estim Creat Clear Calc 97 ml/min Estimated GFR > 60 (59 - ) Glucose 94 (65-110) mg/dL Calcium 8.7 (8.4-10.2) mg/dL Total Bilirubin 0.3 (0.2-1.3) mg/dL AST 45 H (14-36) U/L ALT 47 H (6-35) U/L Alkaline Phosphatase 166 H (38-126) U/L Total Protein 7.0 (6.3-8.2) g/dL Albumin 4.3 (3.5-5.1) g/dL <Gm Gonzalez PA-C - Last Filed: 06/30/24 01:38> Discharge Plan Discharge Clinical Impression: Laryngitis <Meena Ashraf APRN - Last Filed: 06/29/24 14:43> Patient Disposition: Home <Meena Ashraf APRN - Last Filed: 06/29/24 14:43> Condition: Stable <Meena Ashraf APRN - Last Filed: 06/29/24 14:43> Instructions: Antibiotic Form <Meena Ashraf APRN - Last Filed: 06/29/24 14:43> Additional Instructions: Your exam today is reassuring. This is probably laryngitis and is self resolving after virus. Makes experience the symptoms of hoarse voice voice for the next 4-5 weeks. If symptoms continue past that, please follow-up closely with PCP. Continue using [id number] treatments as well as honey for soothing effect. If you have any new or worsening symptoms please return to the ER for further evaluation. <Meena Ashraf APRN - Last Filed: 06/29/24 14:43> Patient Language: Swedish <Meena Ashraf APRN - Last Filed: 06/29/24 14:43> Prescriptions: No Action PNV cmb#95-ferrous fumarate-FA [] 28 mg iron- 800 mcg Tablet 1 tablet PO DAILY polysaccharide iron complex 150 mg iron Capsule 150 mg PO BIDWM Qty: 60 0RF ibuprofen 600 mg Tablet 600 mg PO Q6H PRN (Reason: Cramping) Qty: 20 0RF hydrocodone-acetaminophen 5-325 mg Tablet 1 tablet PO Q3H PRN (Reason: Moderate Pain (4-6)) Qty: 15 0RF <Meena Ashraf APRN - Last Filed: 06/29/24 14:43> Follow-up/Referrals: PHYSICIAN,ATTENDING UROLOGIST [Primary Care Provider] - <Meena Ashraf APRN - Last Filed: 06/29/24 14:43> Time of Disposition: 18:00 <Meena Ashraf APRN - Last Filed: 06/29/24 14:43> 18:00 <Gm Gonzalez PA-C - Last Filed: 06/30/24 01:38>
[2024-06-29] MEDS: predniSONE 20 MG TABLET 60 MG PO (15:01)
[2024-06-29 15:07] LABS: Basophils Percent Auto 0.5 % (0.2-1.2); Eosinophils Absolute Auto 0.1 K/mm3 (0-0.3); Eosinophils Percent Auto 2.1 % (0-4.4); Hematocrit 37.5 % (37.0-47.0); Hemoglobin 11.7 g/dL (12.0-15.0); Immature Granulocyte Absolute 0.02 K/mm3 (0.00-0.031); Immature Granulocyte Percent A 0.3 % (0-0.5); Lymphocytes Absolute Auto 1.76 K/mm3 (0.9-3.2); Lymphocytes Percent Auto 28.8 % (18.3-44.2); Mean Corpuscular HGB Conc 31.2 g/dl (32-36); Mean Corpuscular Hemoglobin 28.4 pg (26-34); Mean Platelet Volume 10.3 fl (7.4-10.4); Monocytes Absolute Auto 0.4 K/mm3 (0.1-0.6); Monocytes Percent Auto 6.2 % (2.6-8.5); Neutrophils Absolute Auto 3.8 K/mm3 (1.3-6.7); Neutrophils Percent Auto 62.1 % (45.5-73.1); Platelet Count Result 244 k/mm3 (150-375); Red Blood Count 4.12 M/mm3 (4.2-5.4); Red Cell Distribution Width 16.4 % (11.5-14.5); White Blood Count 6.1 K/mm3 (4.5-10.0)
[2024-06-29 15:17] LABS: Alanine Aminotransferase 47 U/L (6-35); Albumin Level 4.3 g/dL (3.5-5.1); Alkaline Phosphatase 166 U/L (38-126); Anion Gap 11 mmol/L (4-12); Aspartate Amino Transferase 45 U/L (14-36); Bilirubin,Total 0.3 mg/dL (0.2-1.3); Blood Urea Nitrogen 4 mg/dL (7-17); Calcium 8.7 mg/dL (8.4-10.2); Carbon Dioxide 23 mmol/L (22-30); Chloride 105 mmol/L (98-107); Estimated CRCL calculation 97 ml/min; Estimated Glomerular Filt Rate > 60; Glucose 94 mg/dL (65-110); Sodium 139 mmol/L (137-145)
[2024-06-29] MEDS: IPRATROPIUM 0.5 MG/ALBUTEROL SULFATE 2.5 MG AMPUL.NEB 3 ML INHALATION ×3 (16:17→17:15)
[2024-06-29 16:18] VITALS: PULSE 88; RESP 20
--- NOTE | 2024-06-29 16:25 | PCRCNOTE ---
Treatment given late due to pt in waiting room when orders were put in.
--- OUTSIDE RECORDS SUMMARY | 2024-06-29 16:25 | XMS_ITS | Clinical Summary ---
Author Organization [facility] Address [address] [place] [id number] Care Team Providers Care Hardware Assembler Name Role Phone Unavailable Primary Care Provider Unavailabl e Social History Tobacco Use Types Packs/Day Years Used Date Smoking Tobacco: Never Assessed Comments Unknown Sex and Gender Information Value Date Recorded Sex Assigned at Not on file Legal Sex Female 5:33 PM CDT Gender Identity Not on file Sexual Orientation Not on file Plan of Treatment Health Maintenance Due Date Last Done Comments Cervical Cancer Screening Pa p Smear (Age 30 to 64) Every 3 Years 1987 Annual Physical 10/31/1990 Hepatitis C 10/31/2005 DTaP, Tdap and Td Vaccines ( 1 - Tdap) 10/31/2006 Hepatitis B Vaccines (1 of 3 - 19+ 3-dose series) 10/31/2006 Cervical Cancer Screening Pa p with HPV Testing (Age 30 to 64) Every 5 Years 10/31/2017 Cervical Cancer Screening with HPV 10/31/2017 COVID-19 Vaccine (2023-2 5 season) 2023 HPV Vaccines Aged Out No longer eligi ble based on patient's age to complete this topic Meningococcal B Vaccine Aged Out No l onger eligible based on patient's age to complete this topic Meningococcal Vaccine Aged Out No andrew pipe eligible based on patient's age to complete this topic Pneumococcal Vaccine: Pediat rics (0 to 5 Years) and At-Risk Patients (6 to 49 Years) Aged Out No longer eligible b ased on patient's age to complete this topic RSV Immunizations Under 20 Months Aged Out No longer eligible based on patient's age to complete this topic
--- OUTSIDE RECORDS SUMMARY | 2024-06-29 16:25 | XMS_ITS | Clinical Summary ---
Author Organization [facility] [employer] Address [address] [place] [address] Care Team Providers Care Workers' Compensation Claims Supervisor Name Role Phone Alberta San MD Primary Care Provider + [phone] Source Comments [facility] [employer] [employer],non-owned Affiliates and Associated Physician Practices is amultiple site organization consisting of ambulatory clinics and hospital sitesin [place], [place], [place] and [place]. This disclosure is being madepursuant to the Care Everywhere program and may not contain all information available regarding this patient. Last updated 17.[facility] [employer] Allergies Active Allergy Reactions Criticality Noted Date Comments Morphine Rash Medium 10/07/2019 Medications * Be aware that medications may not be up to date on this document. Alwaysverify current medications with the patient. Vit-DSS-Fe Fum-FA ( VITAMIN WITH IRON) tabletIndicatio ns: Take 1 tablet by mouth once daily Reasons: Active Resolved Problems Problem Noted Date Diagnosed Date Resolved Date Depression screen 10/26/2019 11/24/2019 Overview (10/26/2019): 10/26/2019 Doreen Sun was screened for depression using the [place] Depression Scale (EPDS) at her [facility] initial evaluation on 10/26/2019. Her initial score at baseline was 0. Based off of her score of 0, Doreen does not warrant follow up. Patient will continue to be screened throughout , at intervals no closer than two weeks, for continued surveillance and early identification of depression until delivery. Patient reports mental health history. Diagnoses include depression,bipolar disorder. Suspected anomaly not found 10/26/2019 11/24/2019 abnormality in pregnan cy - abdominal cyst 10/12/2019 11/24/2019 Overview (10/27/2019): Images from the original note were not included. USP PATIENT--PLEASE CALL [phone] (ex 2) IF TRIAGED OR ADMITTED Care Provider: Dr[facility] Shrestha [facility] [place] consultants involved: RN- Sara; MFM- Dr. Fuentes; Pediatric Surgery SWAGING MACHINE ADJUSTER- Alessio Rapp; Neonatology- Diagnosis: 10.25 USP US: There is no longer a large intra-abdominal cyst. There is a small fluid collection in the right abdomen, measuring 14 x 15 mm. There is no discrete cyst wall demonstrated. These findings raise concern for interval cyst rupture Planned surveillance: Initial USP/consults 10.26.2019. Receiving 2x/week testing through primary OB's office Delivery location: [facility] Delivery mode: Patient plans on repeat Desired Delivery GA: No current indication for delivery prior to 39 weeks follow up: Per Pediatric Surgery in consultation with neonatology: Okay for patient to deliver at [place] - is baby is well with a normal course (feeding, pooping, no belly distended), then plan is to get an abdominal ultrasound at [facility] within the first week of life - to make the appointment, call Alessio directly at [phone]. If complications arise during the course, recommend transfer to [facility]. Tube Coremaker: Dr. Mcarthur Genetics note: Minister Of Religion Concerns: 10/26/2019-Patient with mental health history(depression and bipolar)- no medications Care plan based on evaluation and is subject to change based on assessment. See Images or Cardiac under Chart Review for US/ ECHO/ MRI reports. Encounter for anatomic survey 10/05/2019 11/24/2019 Overview (10/05/2019): Possible ovarian cyst, septated focus on Right pelvis, SGA on outside scan from at 29w1d. Family History Medical History Relation Name Comments Hypertension Father Relation Name Status Comments Father Alive Mother Alive Sister 1 Alive Sister 2 Alive Social History Tobacco Use Types Packs/Day Years Used Date Smoking Tobacco: Some Days Cigarettes 1 15 Smokeless Tobacco: Never Alcohol Use Standard Drinks/Week Comments Not Currently 0 (1 standard drink = 0.6 oz pur e alcohol) Comments No Sex and Gender Information Value Date Recorded Sex Assigned at Not on file Legal Sex Female 7:32 AM MEDICAL SECRETARY Gender Identity Not on file Sexual Orientation Not on file Last Filed Vital Signs Vital Sign Reading Time Taken Comments Blood Pressure 105/64 10/26/2019 9:33 AM CDT Pulse 69 10/26/2019 9:33 AM CDT Temperature 36.6 C (97.8 F) 10/07/2019 10:55 AM CDT Respiratory Rate - - Oxygen Saturation - - Inhaled Oxygen Concentration - - Weight 90.8 kg (200 lb 3.2 oz) 10/07/2019 10:55 AM CDT Height 160 cm (5' 3 ) 10/07/2019 10:55 AM CDT Body Mass Index 35.46 10/07/2019 10:55 AM CDT Plan of Treatment Health Maintenance Due Date Last Done Comments HIV SCREENING 10/31/2002 HEPATITIS C SCREENING 10/27/2005 DTAP/TDAP/TD VACCINES (1 - Tdap) 10/31/2006 HEPATITIS B VACCINE (1 of 3 - 19+ 3-dose series) 10/31/2006 COVID-19 VACCINE ( - 2023-2 5 season) 2023 DEPRESSION SCREENING 03/11/2024 INFLUENZA VACCINE (Season Ended) 2024 ZOSTER VACCINE (1 of 2) 10/31/2037 HIB VACCINE Aged Out No longer eligi ble based on patient's age to complete this topic HPV VACCINE Aged Out No longer eligi ble based on patient's age to complete this topic MENINGOCOCCAL (Group B) VACC INE SHARED DECISION-MAKING Aged Out No longer eligibl e based on patient's age to complete this topic MENINGOCOCCAL GROUPS A/C/Y/W VACCINE Aged Out No longer eligible b ased on patient's age to complete this topic PNEUMOCOCCAL VACCINE Aged Out No long er eligible based on patient's age to complete this topic [place] [address] [address] [facility] Care Teams Workers' Compensation Claims Supervisor Relationship Specialty [place] [id number] [id number] PCP - General 12/07/19
--- OUTSIDE RECORDS SUMMARY | 2024-06-29 16:25 | XMS_ITS | Data Portability ---
Author Organization [facility] Address [address] [place] [address] [place] [address] Assessment Encounter Date Assessment Date Assessment LastModified by Organization Details LastModified Time 05/21/2023 05/21/2023 Annual gynecological exam performed. Patient will come back in a year unless there are new symptoms. Not available 05/21/2023 14:44:20 Plan of Treatment Reminders Order Date Submit Date Provider Last Modified By Organization Details Last Modified Time Details Appointments None record ed. Lab None record ed. Referral None record ed. Procedures None record ed. Surgeries None record ed. Imaging non-st ress test 020 11/17/19 20 [email or web address] [facility], [facility] [address], [place], [address], 0 21:14:02 Medication Orders None record ed. Patient TargetsNo targets recorded. Patient InstructionsNo instructions recorded. Reason for Referral None Reported. Results Created Date Observation Date Name Description Value Unit Range Abnormal Flag Note LastModifiedBy Organization Detail LastModifiedTime 10/20/19 20 10/20/2019 non-s tress test Interpretati on Reacti ve-MKl marcella flanagan RN Not Available [facility] [address], [place], [address], 10/20/2019 11:42:00 10/23/19 20 10/23/2019 non-s tress test Interpretati on Nonrea ctive needs BPP-BG james RN Not Available [facility] [address], [place], [address], 10/23/2019 12:36:50 10/27/19 20 10/27/2019 non-s tress test Interpretati on Reacti ve but wants BPNico-YIN dewey MD Not Available [facility] [address], [place], [address], 10/27/2019 11:40:13 10/30/19 20 10/30/2019 non-s tress test Interpretati on Reacti ve w/vari dawna needs bpp- Usha hilton RN Not Available [facility] [address], [place], [address], 10/30/2019 11:36:24 11/03/19 20 11/05/2019 strep tococ cus group B DNA GB specimen source Vagina l/Rect al Not Available [facility] ([facility]) [address], [place], [address], 11/05/2019 11:21:31 11/03/19 20 11/05/2019 strep tococ cus group B DNA spec type Cultur e Swab Not Available [facility] ([facility]) [address], [place], [address], 11/05/2019 11:21:31 11/03/19 20 11/05/2019 strep tococ cus group B DNA group B strep by PCR NOT DETECT ED not detect ed Inter preta tion: A posit gerda resul t indic ates the detec tion of Group B Strep tococ cus DNA but not neces saril y the prese nce of viabl e organ isms; it is presu mptiv e for the prese nce of Group B Strep tococ cus. A negat gerda resul t does not exclu de the possi bilit y of infec tion since very low level s of micro organ ism or sampl ing error may cause a false negat gerda resul t. This assay is highl y accur ate, but rare false posit gerda and false negat gerda resul ts may occur . Metho dolog y: This resul t was deter mined using the FDA-c leare d BD Max GBS Assay . The BD Max GBS Assay is a quali tativ e in vitro diagn ostic test for the rapid detec tion of Group B Strep tococ cus (GBS) DNA in vagin al/re ctal speci mens from prepa rtum or intra partu m women utili zing real- time PCR. Perfo rmed by [facility], [address], [place] [address] , Hilary Lebron ra, DO, [facility] tor. Not Available [facility] ([facility]) [address], [place], [address], 11/05/2019 11:21:31 11/03/19 20 11/03/2019 non-s tress test Interpretati on Reacti ve w/vari able needs ALDA campbell RN Not Available [facility] [address] [facility] [address], [place], [address], 11/03/2019 11:43:03 11/06/19 20 11/06/2019 non-s tress test Interpretati on Reacti ve-ASIA mohan RN Not Available [facility] [address] [facility] [address], [place], [address], 11/06/2019 12:41:28 11/10/19 20 11/10/2019 non-s tress test Interpretati on Reacti ve w/vari able needs Alda campbell RN Not Available [facility] [address] [facility] [address], [place], [address], 11/10/2019 11:55:35 11/13/19 20 11/13/2019 non-s tress test Interpretati on Reacti ve-ASIA mohan RN Not Available [facility] [address], [place], [address], 11/13/2019 12:50:38 11/17/19 20 11/17/2019 non-s tress test Interpretati on Reacti ve-BNW LISBETH mohan Not Available [facility] [address], [place], [address], 11/17/2019 13:50:13 04/07/19 21 04/07/2020 US, michael castaenda, 2nd or 3rd priyank murphy md interpretati on Not Available [facility] [address], [place], [address], 07/13/2019 12:51:05 04/22/19 21 04/22/2020 US, christiana islas md interpretati on Not Available [facility] [address], [place], [address], 08/17/2019 17:59:07 04/25/19 21 04/25/2020 US, christiana islas md interpretati on Not Available [facility] [address], [place], [address], 09/14/2019 10:47:44 05/21/19 24 05/21/2023 IMAGE GUIDE D PAP AND HPV REGAR DLESS image guided Pap, HPV regardless of Pap result SEE RESULT S BELOW CASE REPOR T: Cytol ogy Gynec ologi eusebio Repor t Case: [id number] Autho gurvinder g Provi kadie: Jimbo [place] Colle cted: 05/20 1734 CARPENTERS SUPERVISOR Order ing Locat ion: [place] [facility] Recei laura: 05/21 0400 First Scree n: Nacha mpass ak, Sivil ay, CT Rescr een: Noora ni, Moham ed, CT Speci men: Scree viktor Pap - Image d, Cervi x STATE MENT OF ADEQU ACY: Satis facto ry for evalu ation Trans forma tion zone compo nent absen t The absen ce of an endoc ervic al compo nent was confi rmed by an addit leyda doe. FINAL DIAGN OSIS: Negat gerda for Intra epith elial Lesio n or Alexiscatherine tash (NIL) . Elect michael murillo marissa d by Hieu Sidhu ed, CT on 2023 at 10:32 PM ----- ----- ----- ----- ----- ----- ----- ----- ----- ----- ----- ----- ----- ----- ----- ----- ----- ---- HPV RESUL TS: HPV mRNA E6/E7 : No HPV mRNA Detec jono NOTE: This high risk HPV mRNA assay detec ts fourt een high- risk HPV types (16, 18, 31, 33, 35, 39, 45, 51, 52, 56, 58, 59, 66, 68) witho ut diffe renti ation . COMME NT: This speci men was revie wed by a Cytot echno logis t and/o r Patho logis t (as indic ated in this repor t) after evalu ation using the Thinp rep Imagi ng Syste m. CLINI EUSEBIO INFOR MATIO N: Menst rual Statu s: LMP (if appli cable ): Clini eusebio Histo ry/Pr eviou s Pap: Type of Neopl dav (if appli cable ): Signi fican t Clini eusebio Findi ngs: Other Histo ry: Hormo brendan (if appli cable ): PAP EDUCA MARCELINO L NOTE: The Pap Test is a scree viktor test with an inher ent false negat gerda rate. Liqui d-bas ed sampl ing may decre ase, but will not elimi hai, false negat gerda resul ts. A negat gerda resul t does not precl ude the prese nce and/o r devel opmen t of disea se, since the prese nce of abnor mal cells in the sampl e depen ds on the locat ion of the lesio n and sampl ing techn ique. Linda nued regul ar scree viktor is the best metho d of cance r preve ntion . If repor jono cytol ogic findi ng do not corre late with physi eusebio and/o r histo rical findi ngs, furth er inves tigat ion is recom adriano d, as clini isai metcalf nted. Not Available [facility] (Lab) [address], [place], [address], 05/24/2023 23:35:15 10/20/19 US, obste tric, bioph ysica l profi le + non-s tress test No observ ation record ed. [place] [address] [address], [place], [address], 11/06/2019 15:46:31 10/23/19 US, obste tric, bioph ysica l profi le + non-s tress test No observ ation record ed. [email or web address] [address], [place], [address], 10/25/2019 19:15:14 10/26/1910/26/2019 US, obste tric, follo w-up No observ ation record ed. [place] [address] [facility] [place], [address], 10/27/2019 13:47:33 10/27/19 US, obste tric, bioph ysica l profi le + non-s tress test No observ ation record ed. [email or web address] [address], [place], [address], 10/28/2019 06:47:42 10/30/19 US, obste tric, bioph ysica l profi le + non-s tress test No observ ation record ed. [address], [place], [address], 11/02/2019 09:37:16 11/03/19 US, obste tric, bioph ysica l profi le + non-s tress test No observ ation record ed. dipika [address], [place], [address], 11/03/2019 14:10:20 11/10/19 20 US, obste tric, bioph ysica l profi le + non-s tress test No observ ation record ed. dipika [address], [place], [address], 11/11/2019 18:50:04 Result Notes None recorded. Problems Name Problem SNOMED Code Status Onset Date Resolution Date Notes Provider Name and Address Organization Details Recorded Time problem Completed cyst noted - RETIREMENT ruled out no cyst seen on 10/26/19 11/03/19 - Rt ovary enlarged Navi Doshi [facility], [facility] 0 13:44:15 Pregnanc y detectio n examinat ion Completed 201901/06/2021 Encounte r for pregnanc y test, result positive ;Practic e ID: 0001 Jroy Burks [facility], [facility] 1 15:28:46 Gestatio n period, 9 weeks [id number] Completed 201901/06/2021 9 weeks gestatio n of pregnanc y;Practi ce ID: 0001 Jory Burks [facility], [facility] 1 15:28:48 Antenata l screenin g Completed 201901/06/2021 Encounte r for antenata l screenin g for nuchal transluc ency;Pra ctice ID: 0001 Jory Burks [facility], [facility] 1 15:28:00 Normal pregnanc y in multigra ulysses [id number] Completed 201901/06/2021 Encounte r for suprvsn of normal pregnanc y, first trimeste r;Practi ce ID: 0001 Jory laguerre [facility] 15:28:35 Body mass index 30+ - obesity [id number] Completed 201401/06/2021 Body mass index (BMI) 33.0-33. 9, adult;Re corded Elsewher e: No Locat ion: [facility] S ource: E[employer] Motel Manager christen: N Practi ce ID: 0001 Tony lable Time: 09:00:00 AM Jory laguerre [facility] 15:27:38 Dysuria [id number] Completed 201201/06/2021 Dysuria; Recorded Elsewher e: No Locat ion: [facility] S ource: EHR Motel Manager christen: N Practi ce ID: 0001 Tony lable Time: 04:15:00 PM Jory laguerre [facility] 15:28:37 Procedur e Completed 201801/06/2021 Encounte r for checking of implanta ble subderma l contrace ptive;Re corded Elsewher e: No Locat ion: [facility] S ource: [employer] Motel Manager christen: N Practi ce ID: 0001 Tony lable Time: 10:30:00 AM Jory laguerre [facility] 15:28:13 Syphilis test finding [id number] Completed 201401/06/2021 Encntr screen for infectio ns w sexl mode of transmis s;Record ed Elsewher e: No Locat ion: [facility] S ource: [employer] Motel Manager christen: N Practi ce ID: 0001 Tony lable Time: 09:00:00 AM Jory laguerre [facility] 15:28:20 Infectio n screenin g Completed 201401/06/2021 Encounte r for screenin g for oth infec/pa rastc diseases ;Recorde d Elsewher e: No Locat ion: [facility] S ource: E[employer] Motel Manager christen: N Reaganti ce ID: 0001 Tony lable Time: 09:00:00 AM Jory laguerre [facility] 1 15:28:02 Routine antenata l care Completed 201101/06/2021 Supervis ion of other normal pregnanc y;Record ed Elsewher e: No Locat ion: [facility] S ource: [employer] Motel Manager christen: N Reaganti ce ID: 0001 Tony lable Time: 02:15:00 PM [facility] 15:27:34 Postpart um care Completed 201201/06/2021 Routine postpart um follow-u p;Record ed Elsewher e: No Locat ion: [facility] S ource: EHR Motel Manager christen: N Reaganti ce ID: 0001 Tony lable Time: 04:15:00 PM Jory laguerre [facility] [address] 15:27:[address] Concept Completed 201501/06/2021 Encounte r for surveill ance of other contrace ptives;R ecorded Elsewher e: No Locat ion: [facility] S ource: E[employer] Motel Manager christen: N Reaganti ce ID: 0001 Tony lable Time: 02:00:00 PM Jory laguerre [facility] 1 15:28:14 Insect bite, nonvenom ous, of breast [id number] Completed 201501/06/2021 Insect bite (nonveno mous) of breast, left breast, sequela; Recorded Elsewher e: No Locat ion: [facility] S ource: EHR Motel Manager christen: N Practi ce ID: 0001 Tony lable Time: 01:45:00 PM Jory laguerre [facility] 15:27:[address] Concept Completed 201801/06/2021 Encntr for chuck wagon cook exam (general ) (routine ) w/o abn findings ;Recorde d Elsewher e: No Locat ion: [facility] S ource: EHR Motel Manager christen: Oracio Ferguson ce ID: 0001 Tony lable Time: 02:30:00 PM Jory laguerre, [facility] 15:28:09 Human papillom avirus deoxyrib onucleic acid detected , high risk on cervical specimen [id number] Completed 201801/06/2021 Cervical high risk HPV DNA test positive ;Recorde d Elsewher e: No Locat ion: [facility] S ource: E[employer] Motel Manager christen: Oracio Ferguson ce ID: 0001 Tony lable Time: 02:30:00 PM Joyr laguerre, [facility] 15:28:45 Pregnanc y test negative [id number] Completed 201201/06/2021 Pregnanc y examinat ion or test, negative result;R ecorded Elsewher e: No Locat ion: [facility] S ource: E[employer] Motel Manager christen: Oracio Ferguson ce ID: 0001 Tony lable Time: 11:15:00 AM Jory laguerre, [facility] 15:28:05 Uterine size for dates discrepa ncy [id number] Completed 201101/06/2021 UTERINE SIZE ANTONIO-ANTE PAR;Ian rded Elsewher e: No Locat ion: [facility] S ource: E[employer] Motel Manager christen: Oracio Ferguson ce ID: 0001 Tony lable Time: 01:30:00 PM Jory laguerre [facility] 15:28:34 Depressi ve disorder [id number] Completed 201201/06/2021 Depressi on;Recor ded Elsewher e: No [facility]: EHR Motel Manager christen: N Reaganti ce ID: 0001 Tony lable Time: 04:15:00 PM Jory laguerre, [facility] 15:28:16 Insertio n of subcutan eous contrace ptive Completed 201201/06/2021 Insertio n of implanta ble subderma l contrace ptive;Re corded Elsewher e: No Locat ion: [facility] S ource: E[employer] Motel Manager christen: N Marty ce ID: 0001 Tony lable Time: 11:15:00 AM Jory Burks [facility], [facility] 15:27:[address] Concept Completed 201801/06/2021 Encntr for general adult medical exam w/o abnormal findings ;Recorde d Elsewher e: No Locat ion: [facility] S ource: E[employer] Motel Manager christen: N Marty ce ID: 0001 Tony lable Time: 02:30:00 PM Jory Burks [facility], [facility] 15:28:08 anatomy study Completed 201101/06/2021 [facility] SURVEY;R ecorded Elsewher e: No Locat ion: [facility] S ource: E[employer] Motel Manager christen: N Reaganti ce ID: 0001 Tony lable Time: 02:00:00 PM Jory laguerre, [facility] 15:28:06 Pregnanc y test positive [id number] Completed 201101/06/2021 Pregnanc y examinat ion or test, positive result;R ecorded Elsewher e: No Locat ion: [facility] S ource: E[employer] Motel Manager christen: N Reaganti ce ID: 0001 Tony lable Time: 02:15:00 PM Jory laguerre, [facility] 15:28:03 Deliveri es by [id number] Completed 201201/06/2021 delivery , without mention of indicati on, unspecif ied as to episode of care;Rec orded Elsewher e: No [facility] S ource: EHR Motel Manager christen: N Practi ce ID: 0001 Tony lable Time: 02:15:00 PM Jory laguerre, [facility] 15:27:49 Amenorrh ea [id number] Completed 201101/06/2021 Absence of menstrua tion;Rec orded Elsewher e: No Locat ion: [facility] S ource: E[employer] Motel Manager christen: N Practi ce ID: 0001 Tony lable Time: 02:15:00 PM Jory Burks [facility], [facility] 15:27:36 Finding by site Completed 201501/06/2021 Dermatit is;Recor ded Elsewher e: No Locat ion: [facility] S ource: [employer] Motel Manager christen: N Practi ce ID: 0001 Tony lable Time: 03:45:00 PM Jory laguerre, [facility] 15:27:53 Poor growth affectin g manageme nt [id number] Completed 201201/06/2021 Poor growth, affectin g manageme nt of mother, antepart um conditio n or complica tion;Rec orded Elsewher e: No Locat ion: [facility] S ource: E[employer] Motel Manager christen: N Practi ce ID: 0001 Tony lable Time: 03:30:00 PM Jory laguerre, [facility] 15:28:18 Speciali zed medical examinat ion Completed 201101/06/2021 Gynecolo gical Examinat ion;Ian rded Elsewher e: No Locat ion: [facility] S ource: [employer]el Manager christen: N Practi ce ID: 0001 Tony lable Time: 02:15:00 PM Jory laguerre, [facility] 15:28:43 Screenin g for malignan t neoplasm of cervix Completed 201101/06/2021 Screenin g for malignan t neoplasm s of the cervix;R ecorded Elsewher e: No Locat ion: [facility] S ource: E[employer] Motel Manager christen: N Practi ce ID: 0001 Tony lable Time: 02:15:00 PM Jory laguerre, [facility] 15:27:43 Ill-defi flip intestin al infectio n Completed 201001/06/2021 No Show Fee;Prac og ID: 0001 Jory laguerre, [facility] 15:27:51 Primigra ulysses [id number] Completed 201001/06/2021 Supervis ion of normal first pregnanc y;Practi ce ID: 0001 Jory laguerre, [facility] 15:27:30 Uterine scar from previous surgery in pregnanc y, childbir th and the puerperi um - delivere d [id number] Completed 201001/06/2021 Previous delivery , antepart um conditio n or complica tion;Pra ctice ID: 0001 Jory laguerre, [facility] 15:27:45 Single live [id number] Completed 201001/06/2021 Mother with single liveborn ;Practic e ID: 0001 Jory laguerre, [facility] 15:27:42 Threaten ed prematur e labor - not delivere d [id number] Completed 201201/06/2021 Threaten ed prematur e labor, antepart um;Pract ice ID: 0001 Jory Burks null, [facility] 1 15:27:47 section Completed 201901/06/2021 11/20/19 w/ BTL Jory Burks null, [facility] 1 15:28:49 Pregnanc y [id number] Completed 201912/29/2019 Jonna Roberts null, [facility] 0 12:53:07 Born by section [id number] Completed X3 desires rpt C/S +BTL - schedule d for 11/20/19, signed IDPA on 09/14/19 Janessaarthur Doshi null, [facility] 0 13:44:15 Problem Notes None recorded. Procedures Surgical History Date Name Laterality Status Provider Name and Address Organization Details Recorded Time 0 SECTION (SURG) completed Lashay Case [facility] 08/03/2020 16:13:00 9 Date of Last Pap Smear completed [facility] 11/03/2019 13:12:40 3 delivery completed [facility] 11/04/2019 17:43:08 1 delivery completed [facility] 11/04/2019 17:43:30 0 procedure on wrist completed [facility] 11/04/2019 17:44:54 9 delivery completed [facility] 11/04/2019 17:43:39 Imaging Results Imaging Date Name Status LastModified by Organiz ation Details LastModified Time 10/20/2019 US, obstetric, biophysical profile + non-stress test completed [email or web address] [address], [place], [address], 11/06/2019 15:46:31 10/23/2019 US, obstetric, biophysical profile + non-stress test completed [email or web address] [address], [place], [address], 10/25/2019 19:15:14 10/26/2019 US, obstetric, follow-up completed [address], [address], 10/27/2019 13:47:33 10/27/2019 US, obstetric, biophysical profile + non-stress test completed [email or web address] [address], [place], [address], 10/28/2019 06:47:42 10/30/2019 US, obstetric, biophysical profile + non-stress test completed [email or web address] [address], [place], [address], 11/02/2019 09:37:16 11/03/2019 US, obstetric, biophysical profile + non-stress test completed [email or web address] [address], [place], [address], 11/03/2019 14:10:20 11/10/2019 US, obstetric, biophysical profile + non-stress test completed [email or web address] [address], [place], [address], 11/11/2019 18:50:04 Procedure Notes None recorded. Medical Equipment None Reported. Allergies Allergen ID Allergen Name Allergen Category Reaction Reaction Severity Criticality Documentation Date Start Date Code Code System Note Provider Name and Address Organization Details Recorded Time 449 morphine medicatio n hives Not available Not available 07/13/2019 7052 RxNorm [facility] 0 09:45:39 450 soap medicatio n Not available Not available Not available 07/13/2019 26954 UNK Color ed Soap Camilla Dela Cruz [facility], [place] - [facility] 0 13:12:23 Medications Name Sig Start Date Stop Date Status Note LastModified by Organization Details LastModified Time Augmentin 875 mg-125 mg tablet take 1 tablet by oral route every 12 hours 07/09 completed Prescrib ed Elsewher e: No Locat ion: [facility] odify By: corina Mas nter DateTime : 03/25/19 13 01:00:00 PM Not Available Not Available Not Available nystatin 100,000 unit/gram topical ointment apply by topical route 2 times every day to the affected area(s) 09/16 completed Prescrib ed Elsewher e: No Locat ion: [facility]ify By: Encount er DateTime : 09/05/19 16 03:45:00 PM Not Available Not Available Not Available hydrocodo ne 5 mg-acetam inophen 325 mg tablet 01/06 completed Not Available Not Available Not Available ondansetr on HCl 4 mg tablet 01/06 completed Not Available Not Available Not Available Zithromax Z-Rui 250 mg tablet take 2 tablet by oral route every day for 1 day then 1 tablet (250 mg) by oral route once daily for 4 days 09/08 completed Prescrib ed Elsewher e: No Locat ion: [facility]ify By: casey maynard DateTime : 09/05/19 16 03:45:00 PM Not Available Not Available Not Available Diflucan 150 mg tablet take 1 tablet (150MG) by oral route once 07/09 completed Prescrib ed Elsewher e: No Locat ion: [facility] odify By: corina Mas nter DateTime : 04/18/19 13 03:26:05 PM Not Available Not Available Not Available metronida zole 500 mg tablet take 1 tablet (500MG) by oral route 2 times every day 08/09 completed Not Available Not Available Not Available Metrogel Vaginal 0.75 % (37.5 mg/5 gram) insert 1 applicat orful by vaginal route every day at bedtime 08/10 completed Prescrib ed Elsewher e: No Locat ion: Christopher benavides [facility] odify By: amdeedee Benavides ncounter DateTime : 03/14/19 16 04:52:39 PM Not Available Not Available Not Available Zoloft 50 mg tablet take 1 tablet (50MG) by oral route every day 08/10 completed Prescrib ed Elsewher e: No Locat ion: Christopher benavides [facility] odify By: irma Benavides ncounter DateTime : 07/10/19 13 04:15:00 PM Not Available Not Available Not Available ibuprofen 600 mg tablet 01/06 completed Not Available Not Available Not Available albuterol sulfate HFA 90 mcg/actua tion aerosol inhaler inhale 2 puff by inhalati on route every 4 - 6 hours as needed 07/09 completed Prescrib ed Elsewher e: No Locat ion: [facility] odify By: corina Mas nter DateTime : 03/25/19 13 01:00:00 PM Not Available Not Available Not Available Vitamin D2 1,250 mcg (50,000 unit) capsule take 1 capsule (16133XG ITS) by oral route every week 07/09 completed Prescrib ed Elsewher e: No [facility] By: corina Mas nter DateTime : 05/07/19 13 01:19:16 PM Not Available Not Available Not Available Poly-Iron 150 mg iron capsule 01/06 completed Not Available Not Available Not Available Bactrim 400 mg-80 mg tablet take 2 tablet by oral route every 12 hours 08/15 completed Prescrib ed Elsewher e: Yes Loca tion: [facility] odify By: marissay Sherita richard DateTime : 08/11/19 16 02:15:00 PM Not Available Not Available Not Available Zithromax 500 mg tablet take 2 tablet (1000MG) by oral route once 12/28 completed Prescrib ed Elsewher e: No Locat ion: [facility] odify By: casey maynard DateTime : 12/11/19 12 02:30:00 PM Not Available Not Available Not Available iron ER 325 mg (65 mg iron) capsule,e xtended release take 1 Tablet by Oral route 3 times every day with orange juice 07/09 completed Prescrib ed Elsewher e: No Locat ion: [facility] odify By: corina Mas nter DateTime : 05/30/19 13 10:39:37 AM Not Available Not Available Not Available nitrofura ntoin monohydra te/macroc rystals 100 mg capsule take 1 capsule by oral route every 12 hours with food 01/06 completed Not Available Not Available Not Available 01/06 completed Not Available Not Available Not Available Implanon 68 mg subdermal implant 09/16 completed Prescrib ed Elsewher e: Yes Loca tion: [facility] odify By: [email or web address] Encount er DateTime : 08/15/19 13 11:15:00 AM Not Available Not Available Not Available Prenate DHA 27 mg iron-1 mg-300 mg-50 mg capsule take 1 capsule by oral route every day 11/15 completed Prescrib ed Elsewher e: No Locat ion: [facility] odify By: tram zimmerman DateTime : 12/21/19 11 01:45:35 PM Not Available Not Available Not Available Vitals Date Recorded Body height Body mass index (BMI) Systolic blood pressure Diastolic blood pressure Provider Name and Address Organization Details Last Updated DateTime 11/17/2019 160.02 cm 34.5 kg/m2 125 mm[Hg] 81 mm[Hg] Camilla Dela Cruz [facility] 11/17/2019 13:26:30 Date Recorded Body weight Provider Name an d Address Organization Details Last Updated DateTime 11/17/2019 59105.38267 g Barb Iqbal , JANIS [address], [place], [address], [facility] 11/17/2019 14:05:01 Date Recorded Body height Body mass index (BMI) Body weight Systolic blood pressure Diastolic blood pressure Provider Name and Address Organization Details Last Updated DateTime 11/27/2019 160.02 cm 32.8 kg/m2 61774.58 845 g 119 mm[Hg] 81 mm[Hg] Jonna [facility] 0 12:46:40 Date Recorded Body weight Body mass index (BMI) Body height Systolic blood pressure Diastolic blood pressure Provider Name and Address Organization Details Last Updated DateTime 05/21/2023 39197.98 g 34.9 kg/m2 160.02 cm 113 mm[Hg] 78 mm[Hg] [facility] 4 14:44:56 Date Recorded Body height Body mass index (BMI) Body weight Systolic blood pressure Diastolic blood pressure Provider Name and Address Organization Details Last Updated DateTime 12/29/2019 160.02 cm 31.9 kg/m2 62643.63 g 126 mm[Hg] 76 mm[Hg] [facility] 0 15:28:28 Social History Question Answer Notes LastModified by Organizat ion Details LastModified Time Tobacco Smoking Status Current Every Day Smoker Alla laguerre, [facility] 07/13/2019 12:54:16 What Is Your Level Of Alcohol Consumption? None Information not available 07/13/2019 How Many Years Have You Consumed Alcohol? 15 Information not available 05/21/2023 Are You Blind Or Do You Have Difficulty Seeing? No Information not available 05/21/2023 What Is Your Level Of Caffeine Consumption? Heavy Information not available 05/21/2023 How Much Tobacco Do You Chew? None Information not available 05/21/2023 In The 14 Days Before Symptom Onset, Have You Had Close Contact With A Laboratory-confir med COVID-19 While That Case Was Ill? No Information not available 05/21/2023 In The 14 Days Before Symptom Onset, Have You Had Close Contact With A Person Who Is Under Investigation For COVID-19 While That Person Was Ill? No Information not available 05/21/2023 Have You Been To An Area Known To Be High Risk For COVID-19? No Information not available 05/21/2023 Are You Deaf Or Do You Have Serious Difficulty Hearing? No Information not available 05/21/2023 Do You Or Have You Ever Used E-cigarettes Or Vape? Never Used Electronic Cigarettes Information not available 11/04/2019 What Is The Highest Grade Or Level Of School You Have Completed Or The Highest Degree You Have Received? 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 No Information not available 05/21/2023 What Was The Date Of Your Most Recent Tobacco Screening? 11/17/2019 [email or web address] Information not available 11/17/2019 Do You Use Protection During Sex? No Information not available 05/21/2023 Do You Use Your Seat Belt Or Car Seat Routinely? Yes Information not available 05/21/2023 Do You Have Smoke And Carbon Monoxide Detectors In Your Home? No Information not available 05/21/2023 At What Age Did You Start Smoking Tobacco? 15 Information not available 05/21/2023 Do You Or Have You Ever Used Smokeless Tobacco? Never Used Smokeless Tobacco [email or web address] Information not available 11/04/2019 How Much Tobacco Do You Smoke? 1 PPD 1 Pack A Day [email or web address] Information not available 11/04/2019 Do You Feel Stressed (tense, Restless, Nervous, Or Anxious, Or Unable To Sleep At Night)? [id number] Information not available 05/21/2023 Do You Use Any Illicit Or Recreational Drugs? No Information not available 05/21/2023 Do You Use Sunscreen Routinely? Yes Information not available 05/21/2023 Have You Used IV Drugs? No Information not available 05/21/2023 Sex: Unknown Functional Status Question Answer Note LastModified by Organization D etails LastModified Time What is your exercise level? None Information not available 07/13/2019 Mental Status None recorded. Family History Relationship Description Onset Age of this Age Resolved Age Notes LastModified by Organization Details LastModified Time Mother Diabetes mellitus [email or web address] Not available 11/03 17:41:50 Father Hypertensive disorder [email or web address] Not available 11/03 17:41:59 Medical History Condition Response History of abnormal pap Y Gynecological History Statement/Question Response Abnormal Pap Y Flow Moderate Date of LMP 04/30/2023 On BCP's at Conception? N N Was last menstrual period normal Y STIs/STDs N HPV Vaccine N Duration of Flow (days) 7 Current Control Method Tubal Ligat ion Sexually Active? Y Menses Monthly Y Age of first menstrual cycle 15 Date of Last Pap Smear 11/26/2018 Sexual Problems? N Desired Control Method None LMP Approximate N Obstetrics History GPAL:G 5 P 4 0 1 4 Type Value Full Term 4 Spontaneous 1 Living 4 Total 5 Past Encounters Encounter ID Performer Location Encounter Start Date Encounter Closed Date Diagnosis/Indication Diagnosis SNOMED-CT Code Diagnosis ICD10 Code Diagnosis [id number] [address] [address] 07/13/2019 11:51:31 07/13/2019 13:18:49 screening for malformation 299816556 Z36.3 [id number] [facility] [address],[place] [address] 07/13/2019 11:52:22 07/13/2019 13:47:26 [facility]ine [facility] 232497052 Z34.92 [id number] [address] [place] [address] 08/17/2019 17:12:14 09/18/2019 14:36:45 Routine care 224052038 Z34.92 [id number] Liberty Montes [facility] [address] [place] [address] 08/17/2019 17:13:27 08/17/2019 18:06:13 screening 604124854 Z36.2 [id number] [facility] [address] [place] [address] 08/20/2019 10:26:29 08/20/2019 18:05:48 Routine care 177457801 Z34.92 [id number] [address],[place] [address] 09/14/2019 09:58:54 09/14/2019 11:09:49 Poor growth affecting management 583439407 O36.5930 Z3A.29 [id number] Erma Stevens [facility] [address],[place] [address] 09/14/2019 09:59:28 09/14/2019 12:19:55 Routine care 468595490 Z34.92 [id number] Mark Shrestha MD [facility] [address],[place] [address] 09/28/2019 12:16:45 09/28/2019 21:56:20 [id number] Mark Shrestha MD [facility] [address],[place] [address] 10/19/2019 14:09:55 10/19/2019 15:05:04 Routine care 390361512 Z34.83 [id number] Deysi Cordova [facility] [address],[place] [address] 10/20/2019 11:38:09 10/20/2019 13:16:03 condition affecting obstetrical care of mother 472951172 O35.9XX0 [id number] [facility] [address],[place] [address] 10/20/2019 11:38:42 10/20/2019 13:17:00 condition affecting obstetrical care of mother 515716270 O35.8XX0 Z3A.34 [id number] Deysi Cordova [facility] [address],[place] [address] 10/23/2019 12:33:30 10/23/2019 15:26:40 condition affecting obstetrical care of mother 302664414 O35.9XX0 [id number] Kaleigh Champion [facility] [address],[place] [address] 10/23/2019 13:05:54 10/23/2019 13:50:08 condition affecting obstetrical care of mother 581947528 O36.8330 Z3A.35 [id number] Deysi Cordova [facility] [address],[place] [address] 10/27/2019 11:28:44 10/27/2019 12:20:18 condition affecting obstetrical care of mother 160149904 O35.9XX0 [id number] [facility] [address],[place] [address] 10/27/2019 12:12:44 10/27/2019 13:09:12 condition affecting obstetrical care of mother 899647895 O36.8330 Z3A.35 [id number] Mark Shrestha MD [facility] [address] [address] 10/30/2019 11:32:52 10/30/2019 13:18:51 Routine care 372808026 Z34.83 [id number] Deysi Cordova [facility] [address],[place] [address] 10/30/2019 11:33:27 10/30/2019 12:30:39 condition affecting obstetrical care of mother 343168863 O35.9XX0 [id number] Chelsea Whelan [facility] [address],[place] [address] 10/30/2019 12:53:39 10/30/2019 15:54:13 condition affecting obstetrical care of mother 668884337 O36.8330 [id number] Deysi Cordova [facility] [address],[place] [address] 11/03/2019 11:26:10 11/03/2019 13:28:02 condition affecting obstetrical care of mother 188022732 O35.9XX0 [id number] Barb Iqbal [facility] [address],[place] [address] 11/03/2019 11:27:31 11/03/2019 16:12:36 condition affecting obstetrical care of mother 621448955 O35.9XX0 Routine an tenatal care 515306319 Z34.83 [id number] Liberty Montes [facility] [address],[place] [address] 11/03/2019 12:20:04 11/03/2019 13:28:46 condition affecting obstetrical care of mother 291448855 O36.8330 Z3A.36 [id number] Deysi Cordova [facility] [address],[place] [address] 11/06/2019 12:37:29 11/06/2019 13:53:26 condition affecting obstetrical care of mother 781723507 O35.9XX0 [id number] Barb Iqbal [facility] [address] [place] [address] 11/10/2019 11:40:19 11/10/2019 13:16:33 Routine care 298431413 Z34.83 [id number] Deysi Cordova [place] [address] [place] [address] 11/10/2019 11:40:49 11/10/2019 13:43:08 condition affecting obstetrical care of mother 496896067 O35.9XX0 [id number] [facility] [address] [place] [address] 11/10/2019 12:33:14 11/10/2019 13:05:44 condition affecting obstetrical care of mother 968131497 O36.8330 [id number] Deysi Cordova [facility] [address] [place] [address] 11/13/2019 12:49:46 11/13/2019 13:33:56 condition affecting obstetrical care of mother 827283881 O35.9XX0 [id number] Barb Iqbal [facility] [address] [place] [address] 11/17/2019 12:56:40 11/17/2019 14:33:01 Routine care 869553555 Z34.83 [id number] Deysi Cordova [facility] [address] [place] [address] 11/17/2019 13:45:12 11/17/2019 14:32:50 condition affecting obstetrical care of mother 607150852 O35.9XX0 [id number] Mark Shrestha MD [facility] [address] [address] 11/27/2019 12:27:33 11/27/2019 13:03:21 Postoperative care 153808847 Z48.89 This patient is a 40-year-ol d female who presents for postop follow-up. She is 1 week postop from a delivery. Her incision is clean dry and intact. She has no complaints . Her bleeding is minimal. She denies any nausea, vomiting, fever, chills. She denies any chest pain or shortness of breath. Her baby is doing well. Her mood is good. [id number] Mark Shrestha MD [facility] [address],[place] [address] 12/09/2019 14:13:06 12/10/2019 03:58:09 [id number] Mark Shrestha MD [facility] [address],[place] [address] 12/29/2019 15:19:15 12/29/2019 16:07:36 care 789553925 Z39.2 this patient is a 34-year-ol d female presents for routine follow-up. She is doing well she is recovering normally and her baby is well. Her mood is good. [id number] [facility] [address] [address] 05/21/2023 14:26:06 05/21/2023 15:05:26 Gynecologic examination 26440123 Z01.419 Take Calcium with Vitamin D 1200mg daily if not receiving in daily diet. It is strongly advised to have an annual flu shot and up can obtain at most pharmacies . If you have not had a TDap shot in the last 10 years you should obtain one as well. Discussed with patient & provided with informatio n regarding Gardisil vaccine to prevent the 4 strains for HPV that cause cervical cancer if under age 26. Encourage safe sexual practices, to use condoms and limit partners if not already in a monogamous relationsh ip. Do monthly self breast exams. Have mammogram yearly or every other year depending on family history. BRCA testing is now available for patients with strong genetic history of female cancer. If interested contact the office. Engage in daily exercise of low impact aerobic exercise 45-60 minutes 4-5 times weekly. Avoid tobacco and illicit drugs as well as using moderation with alcohol intake less than 1-2 8 oz beverages daily. This lifestyle behavior pattern will lead to less health conditions and longer life span. If BMI greater than 25 weight watchers or dietary consult advised. Patient received above instructio ns, and questions have been answered. If you have any questions please call or respond to this email. Patient was made aware of the patient portal and may obtain a paper copy of today's plan if desired. Pap/hpv sentSTD Screen declinedGe netic Screen discussedC olon Screen naDexa Screen naRoutine Labs PCP Health Concerns Section Related Observation LastModified by Organization Detai ls LastModified Time None Recorded Concern Status LastModified by Organization Details LastModified Time None Recorded Advance Directives Directive None Recorded Payers Encounter Date Sequence Insurance Name Policy Number Policy Parmar Covered Member ID Parmar Member ID Guarantor Name 11/17/2019 1 [facility] PRIOR TO 09/08/2020 (MEDICAID REPLACEMENT - HMO) Doreen Sun [id number] Doreen 11/20/2019 1 [facility] PRIOR TO 09/08/2020 (MEDICAID REPLACEMENT - HMO) Doreen Sun [id number] Doreen 11/27/2019 1 [facility] PRIOR TO 09/08/2020 (MEDICAID REPLACEMENT - HMO) Doreen Sun [id number] Doreen 12/29/2019 1 [facility] PRIOR TO 09/08/2020 (MEDICAID REPLACEMENT - HMO) Doreen Sun [id number] Doreen 05/21/2023 1 [facility] ON OR AFTER 09/08/20 (MEDICAID REPLACEMENT - HMO) Doreen Sun [id number] Doreen Sun Notes Date Note Type Note Provider Name and Address Organization Details Recorded Time 11/27/2019 text/html This patient is a 40-year-old female who presents for postop follow-up. She is 1 week postop from a delivery. Her incision is clean dry and intact. She has no complaints. Her bleeding is minimal. She denies any nausea, vomiting, fever, chills. She denies any chest pain or shortness of breath. Her baby is doing well. Her mood is good. Mark Shrestha MD [address], [place], [address], [facility] 11/27/2019 13:02:05 12/29/2019 text/html this patient is a 32 week female who presents for visit. She is 4 weeks from a delivery. Her incision is clean dry and intact. She has no complaints. Her pain is resolved. She is bottle-feeding. She has not had sex. She has no bleeding. Her baby is well on her mood is good. Mark Shrestha MD [address], [place], [address], [facility] 12/29/2019 16:03:29 05/21/2023 text/html Annual GYNReport ed bypatient.History: no gynecologic complaints Menstrual cycle:Normal menses Urinary symptoms:No hematuria; No incontinence Vulva:No genital lesion Vagina:Normal vaginal discharge Breast:No breast pain; No breast lump; No nipple discharge Current Contraception:Sati sfied with current contraception; Tubal ligation Sexual complaints:No sexual complaints; No pain during intercourse; Normal libido Menopausal Symptoms:No menopausal symptoms; Normal vaginal lubrication Psychological symptoms:No depression; No anxiety; No PMDD Preventive measures:Encourage self breast examination; Encourage regular exercise; Encourage no tobacco use; Encourage regular mammograms starting age 40; Followed with yearly pap smears [facility] [address], [place], [address], [facility] 05/21/2023 15:05:22 OBGyn Episode Ob Episode Information Episode Created Date Number of Fetuses Patient Bloodtype Patient rh Status Prepregnancy Weight lbs Domestic Partner Domestic Partner Phone Father Name [employer] Librarian Status 07/13/19 20 1 CLOSED Fetus Data First Name Last Name Admitted to NICU Weight (g) Sex Living Outcome Pediatric Complications Fetus ID Race Codes Race Delivery Type 3005.04 7 F Full Term 1088 Primary Noman Calculation Initial Noman Date Initial Exam Date Initial Exam Provider Initial Ultrasound Date Last Menstrual Period Date Ultra Sound Weeks Gestation 0 Eighteen To Twenty Week Noman Update Ultra Sound Date Fundal Height At Umbil Quickening Date Ultra Sound Latest Weeks Gestation Final Noman Confirmed By Final Noman Confirmed Date Final Noman Date Ultra Sound Latest Days Gestation 0 0 Menstrual History Last Menstrual Date Menses Monthly On Bcp Conception Prior Menses Frequency Hcg Plus Date Menarche Onset Age Delivery Information Delivery Date Delivery Type Labor Anesthesia Weeks Gestation Incision Type Labor Labor Length Hrs Delivered By Post Complications Tubal Sterilization Discharge Date Comments 3 39 GBS+ , +chl Discharge Information Feeding Method Contraceptive Method Maternal HG B and HCT Levels Ob Episode Information Episode Created Date Number of Fetuses Patient Bloodtype Patient rh Status Prepregnancy Weight lbs Domestic Partner Domestic Partner Phone Father Name [employer] School Librarian Status 07/13/19 20 1 CLOSED Fetus Data First Name Last Name Admitted to NICU Weight (g) Sex Living Outcome Pediatric Complications Fetus ID Race Codes Race Delivery Type 7.76 6 F Full Term 1086 Primary Noman Calculation Initial Noman Date Initial Exam Date Initial Exam Provider Initial Ultrasound Date Last Menstrual Period Date Ultra Sound Weeks Gestation 0 Eighteen To Twenty Week Noman Update Ultra Sound Date Fundal Height At Umbil Quickening Date Ultra Sound Latest Weeks Gestation Final Noman Confirmed By Final Noman Confirmed Date Final Noman Date Ultra Sound Latest Days Gestation 0 0 Menstrual History Last Menstrual Date Menses Monthly On Bcp Conception Prior Menses Frequency Hcg Plus Date Menarche Onset Age Delivery Information Delivery Date Delivery Type Labor Anesthesia Weeks Gestation Incision Type Labor Labor Length Hrs Delivered By Post Complications Tubal Sterilization Discharge Date Comments 9 37 2 vessel cord , UDS + Discharge Information Feeding Method Contraceptive Method Maternal HG B and HCT Levels Ob Episode Information Episode Created Date Number of Fetuses Patient Bloodtype Patient rh Status Prepregnancy Weight lbs Domestic Partner Domestic Partner Phone Father Name [employer] Librarian Status 07/13/19 20 1 O Positive 183 CLOSED Fetus Data First Name Last Name Admitted to NICU Weight (g) Sex Living Outcome Pediatric Complications Fetus ID Race Codes Race Delivery Type 2579.80 47 F true Full Term 1095 Repeat Problems 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 Problem Name Start Date End Date Resolution Snomed Code Not e Born by section [id number] X3 desires rpt C/S +BTL - scheduled for 11/20/19, signed IDPA on 09/14/19 problem [id number] cyst noted - RETIREMENT ruled out no cyst seen on - Rt ovary enlarged Noman Calculation Initial Noman Date Initial Exam Date Initial Exam Provider Initial Ultrasound Date Last Menstrual Period Date Ultra Sound Weeks Gestation 11/26/2019 07/13/2019 04/27/2019 9 Eighteen To Twenty Week Noman Update Ultra Sound Date Fundal Height At Umbil Quickening Date Ultra Sound Latest Weeks Gestation Final Noman Confirmed By Final Noman Confirmed Date Final Noman Date Ultra Sound Latest Days Gestation 0 [email or web address] 09/25/2019 11/26/19 20 0 Pre- Flowsheet Flowsheet Date 07/13/2019 Gonzalez Score Blood Edema Fundus Height Fundus Units Glucose Ketones Leukocytes Nitrite Labor Signs Protein Cervic Dilation Cervic Effacement Cervic Station Type Weight in lbs Pre/Post Dialysis Refused BP Diastolic BP Location Tested BP Systolic BP Type Fetus Heart Rate Present Fetus Movement Comments at 13+0 by sure LMP = 9 week U/S c/o nausea but no emesis. Smoking 1 ppd (down from 2+ ppd) Flowsheet Date 07/13/2019 Gonzalez Score Blood Edema Fundus Height Fundus Units Glucose Ketones Leukocytes Nitrite Labor Signs Protein Cervic Dilation Cervic Effacement Cervic Station Type Weight in lbs Pre/Post Dialysis Refused BP Diastolic BP Location Tested BP Systolic BP Type Fetus Heart Rate Present Fetus Movement Comments Flowsheet Date 05/21/2019 Gonzalez Score Blood Edema Fundus Height Fundus Units Glucose Ketones Leukocytes Nitrite Labor Signs Protein Cervic Dilation Cervic Effacement Cervic Station 12 trace Type Weight in lbs Pre/Post Dialysis Refused Weight 149.410137759418 BP Diastolic BP Location Tested BP Systolic BP Type 72 113 sitting Fetus Heart Rate Present A 160 Fetus Movement A Yes Comments at 13+0 by sure LMP = 9 week U/S c/o nausea but no emesis. Smoking 1 ppd (down from 2+ ppd) Flowsheet Date 06/12/2019 Gonzalez Score Blood Edema Fundus Height Fundus Units Glucose Ketones Leukocytes Nitrite Labor Signs Protein Cervic Dilation Cervic Effacement Cervic Station none trace Type Weight in lbs Pre/Post Dialysis Refused Weight 184.564100122554 BP Diastolic BP Location Tested BP Systolic BP Type 63 104 sitting Fetus Heart Rate Present Fetus Movement A Yes Comments ob [id number] pt states that bhat ving nausea and vomiting US +FHR Flowsheet Date 08/17/2019 Gonzalez Score Blood Edema Fundus Height Fundus Units Glucose Ketones Leukocytes Nitrite Labor Signs Protein Cervic Dilation Cervic Effacement Cervic Station Type Weight in lbs Pre/Post Dialysis Refused BP Diastolic BP Location Tested BP Systolic BP Type Fetus Heart Rate Present Fetus Movement Comments Flowsheet Date 08/17/2019 Gonzalez Score Blood Edema Fundus Height Fundus Units Glucose Ketones Leukocytes Nitrite Labor Signs Protein Cervic Dilation Cervic Effacement Cervic Station Type Weight in lbs Pre/Post Dialysis Refused BP Diastolic BP Location Tested BP Systolic BP Type Fetus Heart Rate Present Fetus Movement Comments Flowsheet Date 08/20/2019 Gonzalez Score Blood Edema Fundus Height Fundus Units Glucose Ketones Leukocytes Nitrite Labor Signs Protein Cervic Dilation Cervic Effacement Cervic Station 25 trace Type Weight in lbs Pre/Post Dialysis Refused Weight 193.83945633960 BP Diastolic BP Location Tested BP Systolic BP Type 77 L arm 113 sitting Fetus Heart Rate Present A 149 Fetus Movement A Yes Comments Pt doing well. RTC in 2 week s for gtt. Flowsheet Date 09/14/2019 Gonzalez Score Blood Edema Fundus Height Fundus Units Glucose Ketones Leukocytes Nitrite Labor Signs Protein Cervic Dilation Cervic Effacement Cervic Station Type Weight in lbs Pre/Post Dialysis Refused BP Diastolic BP Location Tested BP Systolic BP Type Fetus Heart Rate Present Fetus Movement Comments Flowsheet Date 09/14/2019 Gonzalez Score Blood Edema Fundus Height Fundus Units Glucose Ketones Leukocytes Nitrite Labor Signs Protein Cervic Dilation Cervic Effacement Cervic Station 29 Type Weight in lbs Pre/Post Dialysis Refused Weight 194.690051902726 BP Diastolic BP Location Tested BP Systolic BP Type 70 L arm 113 sitting Fetus Heart Rate Present A 139 Fetus Movement A Yes Comments 1 hour gtt today. Possible f etal ovarian cyst on u/s. Will await recommendation from Dr Shrestha. Pt desires tubal ligation with c/s. Discussed risk vs benefit. Pt read and signed consent and verbalized understanding. She does not want any future pregnancies. Flowsheet Date 09/28/2019 Gonzalez Score Blood Edema Fundus Height Fundus Units Glucose Ketones Leukocytes Nitrite Labor Signs Protein Cervic Dilation Cervic Effacement Cervic Station 29 Type Weight in lbs Pre/Post Dialysis Refused BP Diastolic BP Location Tested BP Systolic BP Type Fetus Heart Rate Present A 147 Fetus Movement Comments Flowsheet Date 10/19/2019 Gonzalez Score Blood Edema Fundus Height Fundus Units Glucose Ketones Leukocytes Nitrite Labor Signs Protein Cervic Dilation Cervic Effacement Cervic Station 35 Type Weight in lbs Pre/Post Dialysis Refused Weight 196.223635725946 BP Diastolic BP Location Tested BP Systolic BP Type 67 108 Fetus Heart Rate Present A 145 Fetus Movement A Yes Comments patient was instructed to st arted NSTs today. She will return tomorrow to start NSTs. She could not come today. Patient has a large ovarian cyst of the female fetus. Patient has [facility] appt for cyst. Flowsheet Date 10/20/2019 Gonzalez Score Blood Edema Fundus Height Fundus Units Glucose Ketones Leukocytes Nitrite Labor Signs Protein Cervic Dilation Cervic Effacement Cervic Station Type Weight in lbs Pre/Post Dialysis Refused BP Diastolic BP Location Tested BP Systolic BP Type Fetus Heart Rate Present Fetus Movement Comments Flowsheet Date 10/20/2019 Gonzalez Score Blood Edema Fundus Height Fundus Units Glucose Ketones Leukocytes Nitrite Labor Signs Protein Cervic Dilation Cervic Effacement Cervic Station Type Weight in lbs Pre/Post Dialysis Refused BP Diastolic BP Location Tested BP Systolic BP Type Fetus Heart Rate Present Fetus Movement Comments Flowsheet Date 10/23/2019 Gonzalez Score Blood Edema Fundus Height Fundus Units Glucose Ketones Leukocytes Nitrite Labor Signs Protein Cervic Dilation Cervic Effacement Cervic Station Type Weight in lbs Pre/Post Dialysis Refused BP Diastolic BP Location Tested BP Systolic BP Type Fetus Heart Rate Present Fetus Movement Comments Flowsheet Date 10/23/2019 Gonzalez Score Blood Edema Fundus Height Fundus Units Glucose Ketones Leukocytes Nitrite Labor Signs Protein Cervic Dilation Cervic Effacement Cervic Station Type Weight in lbs Pre/Post Dialysis Refused BP Diastolic BP Location Tested BP Systolic BP Type Fetus Heart Rate Present Fetus Movement Comments Flowsheet Date 10/27/2019 Gonzalez Score Blood Edema Fundus Height Fundus Units Glucose Ketones Leukocytes Nitrite Labor Signs Protein Cervic Dilation Cervic Effacement Cervic Station Type Weight in lbs Pre/Post Dialysis Refused BP Diastolic BP Location Tested BP Systolic BP Type Fetus Heart Rate Present Fetus Movement Comments Flowsheet Date 10/27/2019 Gonzalez Score Blood Edema Fundus Height Fundus Units Glucose Ketones Leukocytes Nitrite Labor Signs Protein Cervic Dilation Cervic Effacement Cervic Station Type Weight in lbs Pre/Post Dialysis Refused BP Diastolic BP Location Tested BP Systolic BP Type Fetus Heart Rate Present Fetus Movement Comments Flowsheet Date 10/30/2019 Gonzalez Score Blood Edema Fundus Height Fundus Units Glucose Ketones Leukocytes Nitrite Labor Signs Protein Cervic Dilation Cervic Effacement Cervic Station Type Weight in lbs Pre/Post Dialysis Refused BP Diastolic BP Location Tested BP Systolic BP Type Fetus Heart Rate Present Fetus Movement Comments Flowsheet Date 10/30/2019 Gonzalez Score Blood Edema Fundus Height Fundus Units Glucose Ketones Leukocytes Nitrite Labor Signs Protein Cervic Dilation Cervic Effacement Cervic Station Type Weight in lbs Pre/Post Dialysis Refused BP Diastolic BP Location Tested BP Systolic BP Type Fetus Heart Rate Present Fetus Movement Comments Flowsheet Date 10/30/2019 Gonzalez Score Blood Edema Fundus Height Fundus Units Glucose Ketones Leukocytes Nitrite Labor Signs Protein Cervic Dilation Cervic Effacement Cervic Station 36 trace Type Weight in lbs Pre/Post Dialysis Refused Weight 196.299038477422 BP Diastolic BP Location Tested BP Systolic BP Type 69 107 Fetus Heart Rate Present A 145 Fetus Movement A Yes Comments Flowsheet Date 11/03/2019 Gonzalez Score Blood Edema Fundus Height Fundus Units Glucose Ketones Leukocytes Nitrite Labor Signs Protein Cervic Dilation Cervic Effacement Cervic Station Type Weight in lbs Pre/Post Dialysis Refused BP Diastolic BP Location Tested BP Systolic BP Type Fetus Heart Rate Present Fetus Movement Comments Flowsheet Date 11/03/2019 Gonzalez Score Blood Edema Fundus Height Fundus Units Glucose Ketones Leukocytes Nitrite Labor Signs Protein Cervic Dilation Cervic Effacement Cervic Station Type Weight in lbs Pre/Post Dialysis Refused BP Diastolic BP Location Tested BP Systolic BP Type Fetus Heart Rate Present Fetus Movement Comments Flowsheet Date 11/03/2019 Gonzalez Score Blood Edema Fundus Height Fundus Units Glucose Ketones Leukocytes Nitrite Labor Signs Protein Cervic Dilation Cervic Effacement Cervic Station neg none trace Type Weight in lbs Pre/Post Dialysis Refused Weight 197.828542312604 BP Diastolic BP Location Tested BP Systolic BP Type 72 116 Fetus Heart Rate Present Fetus Movement A Yes Comments patient states having some c ontractions and discharge bpp 8/10 ovary seen?. cyst resolved gbs today Flowsheet Date 11/06/2019 Gonzalez Score Blood Edema Fundus Height Fundus Units Glucose Ketones Leukocytes Nitrite Labor Signs Protein Cervic Dilation Cervic Effacement Cervic Station Type Weight in lbs Pre/Post Dialysis Refused BP Diastolic BP Location Tested BP Systolic BP Type Fetus Heart Rate Present Fetus Movement Comments Flowsheet Date 11/10/2019 Gonzalez Score Blood Edema Fundus Height Fundus Units Glucose Ketones Leukocytes Nitrite Labor Signs Protein Cervic Dilation Cervic Effacement Cervic Station Type Weight in lbs Pre/Post Dialysis Refused BP Diastolic BP Location Tested BP Systolic BP Type Fetus Heart Rate Present Fetus Movement Comments Flowsheet Date 11/10/2019 Gonzalez Score Blood Edema Fundus Height Fundus Units Glucose Ketones Leukocytes Nitrite Labor Signs Protein Cervic Dilation Cervic Effacement Cervic Station Type Weight in lbs Pre/Post Dialysis Refused BP Diastolic BP Location Tested BP Systolic BP Type Fetus Heart Rate Present Fetus Movement Comments Flowsheet Date 11/10/2019 Gonzalez Score Blood Edema Fundus Height Fundus Units Glucose Ketones Leukocytes Nitrite Labor Signs Protein Cervic Dilation Cervic Effacement Cervic Station neg none trace 1cm 0% -3 Type Weight in lbs Pre/Post Dialysis Refused Weight 195.595968601038 BP Diastolic BP Location Tested BP Systolic BP Type 80 118 Fetus Heart Rate Present Fetus Movement A Yes Comments patient states that having p ain and contractions, labor precautions, bpp 8/10 Flowsheet Date 11/13/2019 Gonzalez Score Blood Edema Fundus Height Fundus Units Glucose Ketones Leukocytes Nitrite Labor Signs Protein Cervic Dilation Cervic Effacement Cervic Station Type Weight in lbs Pre/Post Dialysis Refused BP Diastolic BP Location Tested BP Systolic BP Type Fetus Heart Rate Present Fetus Movement Comments Flowsheet Date 11/17/2019 Gonzalez Score Blood Edema Fundus Height Fundus Units Glucose Ketones Leukocytes Nitrite Labor Signs Protein Cervic Dilation Cervic Effacement Cervic Station Type Weight in lbs Pre/Post Dialysis Refused BP Diastolic BP Location Tested BP Systolic BP Type Fetus Heart Rate Present Fetus Movement Comments Flowsheet Date 11/17/2019 Gonzalez Score Blood Edema Fundus Height Fundus Units Glucose Ketones Leukocytes Nitrite Labor Signs Protein Cervic Dilation Cervic Effacement Cervic Station 1cm Type Weight in lbs Pre/Post Dialysis Refused Weight 195.470026177348 BP Diastolic BP Location Tested BP Systolic BP Type 81 125 Fetus Heart Rate Present Fetus Movement Comments c/s on saturday, precautions r eviewed nst r Flowsheet Date 11/20/2019 Gonzalez Score Blood Edema Fundus Height Fundus Units Glucose Ketones Leukocytes Nitrite Labor Signs Protein Cervic Dilation Cervic Effacement Cervic Station Type Weight in lbs Pre/Post Dialysis Refused BP Diastolic BP Location Tested BP Systolic BP Type Fetus Heart Rate Present Fetus Movement Comments Flowsheet Date 11/27/2019 Gonzalez Score Blood Edema Fundus Height Fundus Units Glucose Ketones Leukocytes Nitrite Labor Signs Protein Cervic Dilation Cervic Effacement Cervic Station Type Weight in lbs Pre/Post Dialysis Refused Weight 185.730259663929 BP Diastolic BP Location Tested BP Systolic BP Type 81 R arm 119 sitting Fetus Heart Rate Present Fetus Movement Comments Menstrual History Last Menstrual Date Menses Monthly On Bcp Conception Prior Menses Frequency Hcg Plus Date Menarche Onset Age Genetic Screening And Infection History Question Response Note Mental Retardation/Autism false Patient's Age Will Be 35 Years Or Older At Estim ated Date of Delivery false Thalassemia (Romanian, Lithuanian, Mediterranean, Or Background): MCV < 80 false Neural Tube Defect (Meningomyelocele, Spina Bifi da, Or Anencephaly) false Congenital Heart Defect false Down Syndrome false Darell-Sachs (eg, Voodoo, Cajun, Turkmen-[place]) f alse Suzanne Disease false Sickle Cell Disease Or Trait () false Hemophilia Or Other Blood Disorders false Muscular Dystrophy false Cystic Fibrosis false [place]'s Chorea false Intellectual Disability/Autism false If Yes, Was Person Tested For Fragile X? false Other Inherited Genetic Or Chromosomal Disorder false Maternal Metabolic Disorder (eg, Type 1 Diabetes , PKU) false Patient Or Baby's Father Had A Child With Defects Not Listed Above false Recurrent Loss, Or A Stillbirth false Medications (including Suppl ements, Vitamins, Herbs, OTC Drugs), Illicit/Recreational Drugs, Alcohol false If Yes, Agent(s) And Strength/Dosage false Any Other Genetic History false Live With Someone With TB Or Exposed To TB false Patient Or Partner Has History Of Genital Herpes false Rash Or Viral Illness Since Last Menstrual Perio d false History Of STD, Gonorrhea, Chlamydia, HPV, Syphi lis false Other Infection History false History of HIV false History of Hepatitis false Prior GBS-infected child false Hemoglobinopathy Or Carrier false Other Structural Defect false Recent Travel History Outside of Country false Delivery Information Delivery Date Delivery Type Labor Anesthesia Weeks Gestation Incision Type Labor Labor Length Hrs Delivered By Post Complications Tubal Sterilization Discharge Date Comments 0 None Regional-Sp inal 39.1 Low Transvers e false [id number] true Discharge Information Feeding Method Contraceptive Method Maternal HG B and HCT Levels Ob Episode Information Episode Created Date Number of Fetuses Patient Bloodtype Patient rh Status Prepregnancy Weight lbs Domestic Partner Domestic Partner Phone Father Name High School Librarian Status 07/13/19 20 1 CLOSED Fetus Data First Name Last Name Admitted to NICU Weight (g) Sex Living Outcome Pediatric Complications Fetus ID Race Codes Race Delivery Type 3572.03 7 F Full Term 1087 Primary Noman Calculation Initial Noman Date Initial Exam Date Initial Exam Provider Initial Ultrasound Date Last Menstrual Period Date Ultra Sound Weeks Gestation 0 Eighteen To Twenty Week Noman Update Ultra Sound Date Fundal Height At Umbil Quickening Date Ultra Sound Latest Weeks Gestation Final Noman Confirmed By Final Noman Confirmed Date Final Noman Date Ultra Sound Latest Days Gestation 0 0 Menstrual History Last Menstrual Date Menses Monthly On Bcp Conception Prior Menses Frequency Hcg Plus Date Menarche Onset Age Delivery Information Delivery Date Delivery Type Labor Anesthesia Weeks Gestation Incision Type Labor Labor Length Hrs Delivered By Post Complications Tubal Sterilization Discharge Date Comments 1 39 Natasha - UDS+ , GBS + Discharge Information Feeding Method Contraceptive Method Maternal HG B and HCT Levels Ob Episode Information Episode Created Date Number of Fetuses Patient Bloodtype Patient rh Status Prepregnancy Weight lbs Domestic Partner Domestic Partner Phone Father Name High School Librarian Status 07/13/19 20 1 CLOSED Fetus Data First Name Last Name Admitted to NICU Weight (g) Sex Living Outcome Pediatric Complications Fetus ID Race Codes Race Delivery Type , Spontane ous 1085 Noman Calculation Initial Noman Date Initial Exam Date Initial Exam Provider Initial Ultrasound Date Last Menstrual Period Date Ultra Sound Weeks Gestation 0 Eighteen To Twenty Week Noman Update Ultra Sound Date Fundal Height At Umbil Quickening Date Ultra Sound Latest Weeks Gestation Final Noman Confirmed By Final Noman Confirmed Date Final Noman Date Ultra Sound Latest Days Gestation 0 0 Menstrual History Last Menstrual Date Menses Monthly On Bcp Conception Prior Menses Frequency Hcg Plus Date Menarche Onset Age Delivery Information Delivery Date Delivery Type Labor Anesthesia Weeks Gestation Incision Type Labor Labor Length Hrs Delivered By Post Complications Tubal Sterilization Discharge Date Comments 8 Discharge Information Feeding Method Contraceptive Method Maternal HG B and HCT Levels Ob Episode Information Episode Created Date Number of Fetuses Patient Bloodtype Patient rh Status Prepregnancy Weight lbs Domestic Partner Domestic Partner Phone Father Name High School Librarian Status 11/26/19 20 1 DELETED Noman Calculation Initial Noman Date Initial Exam Date Initial Exam Provider Initial Ultrasound Date Last Menstrual Period Date Ultra Sound Weeks Gestation 0 Eighteen To Twenty Week Noman Update Ultra Sound Date Fundal Height At Umbil Quickening Date Ultra Sound Latest Weeks Gestation Final Noman Confirmed By Final Noman Confirmed Date Final Noman Date Ultra Sound Latest Days Gestation 0 0 Menstrual History Last Menstrual Date Menses Monthly On Bcp Conception Prior Menses Frequency Hcg Plus Date Menarche Onset Age Delivery Information Delivery Date Delivery Type Labor Anesthesia Weeks Gestation Incision Type Labor Labor Length Hrs Delivered By Post Complications Tubal Sterilization Discharge Date Comments 0 39.1 Discharge Information Feeding Method Contraceptive Method Maternal HG B and HCT Levels
--- OUTSIDE RECORDS SUMMARY | 2024-06-29 16:25 | XMS_ITS | Clinical Summary ---
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
[2024-06-29 17:25] VITALS: PULSE 98; RESP 20
--- OUTSIDE RECORDS SUMMARY | 2024-06-29 18:12 | XMS_ITS | Clinical Summary ---
Author Organization [facility] [employer] Address [address] [place] [address] Care Team Providers Care Head Bander And Liner Operator Name Role Phone Alberta San MD Primary Care Provider + [phone] Source Comments [facility] [employer],non-owned Affiliates and Associated Physician Practices is amultiple site organization consisting of ambulatory clinics and hospital sitesin [place], [place] and [place]. This disclosure is being madepursuant to the Care Everywhere program and may not contain all information available regarding this patient. Last updated 17.[facility] [employer] Allergies Active Allergy Reactions Criticality Noted Date [...] Sun was screened for depression using the [place] Depression Scale (EPDS) at her [facility] initial evaluation on 10/26/2019. Her initial [...] from the original note were not included. SENIOR LIVING PATIENT--PLEASE CALL [phone] (ex 2) IF TRIAGED OR ADMITTED Care Provider: Dr. Shrestha [facility] [place] consultants involved: RN- Sara; MFM- Dr. Fuentes; Pediatric Surgery ARCH PAD CEMENTER- Alessio Rapp; Neonatology- Diagnosis: 10.25 SENIOR LIVING US: There is no longer a large intra-abdominal cyst. There is a small fluid collection in the right abdomen, measuring 14 x 15 mm. There is no discrete cyst wall demonstrated. These findings raise concern for interval cyst rupture Planned surveillance: Initial SENIOR LIVING/consults 10.26.2019. Receiving 2x/week testing through primary OB's office Delivery location: [facility] Delivery mode: Patient plans on repeat Desired Delivery GA: No current indication for delivery prior to 39 weeks follow up: Per Pediatric Surgery in consultation with neonatology: Okay for patient to deliver at [facility] - is baby is well with a normal course (feeding, pooping, no belly distended), then plan is to get an abdominal ultrasound at [facility] within the first week of life - to make the appointment, call Alessio directly at [phone]. If complications arise during the course, recommend transfer to [facility]. Senior Training Specialist: Dr. 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
--- OUTSIDE RECORDS SUMMARY | 2024-06-29 18:12 | XMS_ITS | Clinical Summary ---
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
--- OUTSIDE RECORDS SUMMARY | 2024-06-29 18:12 | XMS_ITS | Clinical Summary ---
Author Organization [facility] Address [address] [place] [id number] Care Team Providers Care Laminator Preforms Name Role Phone Unavailable Primary Care Provider [...]
[2024-06-29 18:21] VITALS: BP 145/90; PULSE 89; RESP 16; O2SAT 100
== END 2024-06-29 18:22 | disposition home or self-care (01) ==
PROVIDERS: Registered Nurse; Emergency Provider Physician Assistant
DX: J04.0 Acute laryngitis (principal); F17.210 Nicotine dependence, cigarettes, uncomplicated
CPT/HCPCS: 36415; 71046; 80053; 85025; 94640; 99283; J7512